=== PATIENT | female | born 1940 | race Caucasian/White ===

== ENCOUNTER → 2018-06-15 15:59 | Outpatient (CLI) | payer MEDICARE, SELFPAY ==
[2018-01-11 15:40] VITALS: BMI 33.3
[2018-06-15 17:48] LABS: Absolute Lymphocyte Count 1.41 X10^3/ul (0.83-4.51); Absolute Neutrophil Count 5.3 X10^3/uL (2.0-7.7); Basophil# 0.01 X10^3/uL; Basophil% 0.1 % (0-1); Eosinophil# 0.22 X10^3/uL; Eosinophils% 2.9 % (0-5); Hematocrit 35.5 % (37-47); Lymphocyte # 1.41 X10^3/ul (4.0); Lymphocyte % 18.3 % (19-41); Mean Corpuscular Volume 93.7 fL (81-99); Monocyte# 0.71 X10^3/uL; Monocyte% 9.2 % (0-10); Neutrophil # 5.34 X10^3/uL (2.7-7.7); Neutrophil % 69.2 % (47-70); Platelet Count 286 K/mm3 (150-450); RBC Distribution Width CV 14.1 % (11.6-14.6); RBC Distribution Width SD 47.7 fl (35.1-43.9); Red Blood Count 3.79 M/mm3 (4.2-5.4); White Blood Count 7.7 K/mm3 (4.4-11.0)
[2018-06-15 17:49] LABS: POSITIVE COUNT NO; POSITIVE DIFFERENTIAL NO; POSITIVE MORPHOLOGY NO
[2018-06-15 18:08] LABS: ALB/GLOB Ratio 0.8 RATIO (0.9-2.4); AST(SGOT) 19 U/L (15-37); Alanine Aminotransfer ALT/SGPT 23 U/L (13-56); Albumin, Serum 3.5 g/dL (3.2-5.0); Alkaline Phosphatase 133 U/L (45-117); Anion Gap 6 (5-15); BUN 12 mg/dL (7-18); BUN/Creat Ratio 14.2 RATIO (10-20); Calcium,Total 8.6 mg/dL (8.5-10.1); Chloride 106 mmol/L (98-107); Cholesterol 144 mg/dL (200); Creatinine, Serum 0.85 mg/dL (0.55-1.02); EST Glomerular Filtration Rate 69 mL/min (>60); Est Glom Filt Rate - Afr Amer 84 mL/min (>60); Globulin 4.2 g/dL (2.2-4.2); Glucose 107 mg/dL (74-106); High Density Lipoprotein 51 mg/dL; Potassium 4.4 mmol/L (3.5-5.1); Protein, Total 7.7 g/dL (6.4-8.2); Sodium Level 141 mmol/L (136-145); Thyroid Stim Hormone (TSH) 1.21 uIU/mL (0.358-3.74); Triglycerides 117 mg/dL; Very Low Density Lipoprotein 23 mg/dL (5-40)
[2018-06-15 18:09] LABS: Vitamin D,25 Hydroxy 45.7 ng/mL (29.95-100.01)
--- OUTSIDE RECORDS SUMMARY | 2018-08-20 11:33 | XMS RPT_ITS ---
:1940 Author Organization OHIP Care Team Providers Name Role Phone Hadley, Yash Chi Attending Unavailable Hadley, Yash Chi Primary Care Unavailable Megha Viera Attending Unavailable Anders Fitzpatrick Attending Unavailable Hadley, Yash Chi Referring Unavailable Hadley, Yash Chi Primary Care Unavailable PROBLEMS PROBLEMS DATE TYPE CONDITION / CODE ATTENDING STATUS SOURCE 06/15/2018 Unknown E55.9 - Vitamin D Hadley, Yash Chi Active [place] deficiency, Community unspecified / Hospital E55.9(ICD-10) Repository 06/15/2018 Unknown E78.4 - Other Hadley, Yash Chi Active [place] hyperlipidemia / Community E78.4(ICD-10) Hospital Repository 06/15/2018 Unknown I10 - Essential Hadley, Yash Chi Active [place] (primary) Community hypertension / Hospital I10(ICD-10) Repository PROCEDURES PROCEDURES No Procedure Records FoundRESULTS RESULTS CBC W/DIFF, AUTOMATED Collected: 06/15/2018 Status: F Source: [place] 4:00 PM COUNT INCLUDES THE [facility] HOSPITAL REPOSITORY TYPE CODE TESTS RESULT OUT OF RANGE REFERENCE UNITS LAB L100.1000 4.4-11.0 K/mm3 Normal WBC 7.7 LAB L100.1200 4.2-5.4 M/mm3 Low RBC 3.79 LAB L100.1300 12.0-15.0 g/dl Low HGB 11.0 LAB L100.1400 37-47 % Low HCT 35.5 LAB L100.1500 81-99 fL Normal MCV 93.7 LAB L100.1600 27.0-32.0 pg Normal MCH 29.0 LAB L100.1700 32-36 g/gl Low MCHC 31.0 LAB L100.1810 11.6-14.6 % Normal RDW CV 14.1 LAB L100.1820 35.1-43.9 fl High RDW SD 47.7 LAB L100.1900 150-450 K/mm3 Normal PLT 286 LAB L100.2000 6.2-12.0 fl Normal MPV 10.0 LAB L100.2100 47-70 % Normal NEUT% 69.2 LAB L100.2200 19-41 % Low LY% 18.3 LAB L100.2300 0-10 % Normal MONO% 9.2 LAB L100.2400 0-5 % Normal EO% 2.9 LAB L100.2500 0-1 % Normal BASO% 0.1 LAB L100.2550 0.0-0.9 % Normal IM GRAN % 0.300 Result Comment: IG% - Immature Granulocytes (promyelocytes, myelocytes and metamyelocytes) > 1% indicates that a LEFT SHIFT is Present. LAB L100.2620 2.0-7.7 X10 3/uL Normal Absolute Neut 5.3 LAB L100.2720 0.83-4.51 X10 3/ul Normal Absolute Lymph 1.41 Performed By: #### L100.0100 #### [facility] [address] [place], [place], [address] COMPREHENSIVE METABOLIC Collected: 06/15/2018 Status: F Source: [facility] 4:00 PM [facility] REPOSITORY TYPE CODE TESTS RESULT OUT OF RANGE REFERENCE UNITS LAB L501.0100 74-106 mg/dL High GLU 107 Result Comment: Fasting Glucose result from 100 to 125 mg/dL suggests IMPAIRED HOMEOSTASIS per A.D.A. criteria. Please note revised GLUCOSE reference range effective 2017. LAB L501.1000 7-18 mg/dL Normal BUN 12 LAB L501.1100 0.55-1.02 mg/dL Normal CREAT,SERUM 0.85 Result Comment: The validity of the calculated GFR AND GFRAA in patients over 70 years has not been determined. Clinical correlation is essential. LAB L501.1110 >60 mL/min Normal EST GFR 69 Result Comment: Non- GFR Calc LAB L501.1115 >60 mL/min Normal EST GFR - AA 84 Result Comment: GFR Calc LAB L501.1300 10-20 RATIO Normal BUN/CRE 14.2 LAB L501.1500 6.4-8.2 g/dL T Normal PROT 7.7 LAB L501.1800 3.2-5.0 g/dL Normal ALB 3.5 LAB L501.1950 2.2-4.2 g/dL Normal GLOB 4.2 LAB L501.2000 0.9-2.4 RATIO Low A/G 0.8 LAB L501.2200 8.5-10.1 mg/dL CA Normal 8.6 LAB L501.4100 15-37 U/L Normal AST 19 LAB L501.4305 45-117 U/L High ALK P 133 LAB L501.4405 13-56 U/L Normal ALT 23 LAB L501.4600 0.20-1.00 mg/dL T Normal BILI 0.40 LAB L501.5300 136-145 mmol/L NA Normal 141 LAB L501.5600 3.5-5.1 mmol/L K Normal 4.4 LAB L501.5900 98-107 mmol/L CL Normal 106 LAB L501.6100 21.0-32.0 mmol/L Normal CO2 29.0 LAB L501.6200 5-15 Normal GAP 6 Performed By: #### L500.4050, L500.4100, L501.9520 #### [facility] [address] [place], [address] LIPID PROFILE Collected: 06/15/2018 Status: F Source: [place] 4:00 PM [facility] REPOSITORY TYPE CODE TESTS RESULT OUT OF RANGE REFERENCE UNITS LAB L501.4900 200 mg/dL Normal CHOL 144 Result Comment: <200 mg/dL Desirable 200-240 mg/dL Borderline >240 mg/dL High Risk LAB L501.5000 mg/dL Normal TRIG 117 Result Comment: The drugs N-Acetylcysteine and Metamizole may falsely depress this assay. Serum Triglycerides Reference Interval Normal <150 mg/dL Borderline high 150 - 199 mg/dL High 200 - 499 mg/dL Very High > or = 500 mg/dL LAB L501.6400 mg/dL Normal HDL 51 Result Comment: The drugs N-Acetylcysteine and Metamizole may falsely depress this assay. Reference Range HDL <40 mg/dL Low HDL Cholesterol HDL >or= 60 mg/dL High HDL Cholesterol LAB L501.6500 0-130 mg/dL Normal LDL 70 LAB L501.6600 5-40 mg/dL Normal VLDL 23 Performed By: #### L500.4050, L500.4100, L501.9520 #### [facility] [address] [place], [address] THYROID STIM HORMONE Collected: 06/15/2018 Status: F Source: [place] (TSH) 4:00 PM [facility] REPOSITORY TYPE CODE TESTS RESULT OUT OF RANGE REFERENCE UNITS LAB L501.9520 0.358-3.74 uIU/mL Normal TSH 1.21 Performed By: #### L500.4050, L500.4100, L501.9520 #### [facility] [address] [place], [address] VITAMIN D,25 HYDROXY Collected: 06/15/2018 Status: F Source: [place] 4:00 PM [facility] REPOSITORY TYPE CODE TESTS RESULT OUT OF RANGE REFERENCE UNITS LAB L506.1000 29.95-100.01 ng/mL Normal Vitamin D 45.7 25-OH Result Comment: Vitamin D 25(OH) Status Range Deficiency <20 ng/mL (50nmol/L) Insuffciency 20 - 30 ng/mL (50 - 75 nmol/L) Sufficiency 30 - 100 ng/mL (75 - 250 nmol/L) Toxicity >100 ng/mL (>250 nmol/L) Performed By: #### L506.1000 #### [facility] [address] [place], [address] CARDIOLOGY VISIT Observed: 01/11/2018 Status: F Source: [place] REPORT 4:12 PM [facility] REPOSITORY [facility] [address] [place], [place] [address] OFFICE VISIT Date of Service: 01/11/18 MR#: [id number] Acct: [id number] Name: BOBBI JARAMILLO Coty Rep #: [id number] : 1940 Provider: Anders Fitzpatrick MD Age/Sex: 77/F Location: [facility] Status: Signed HPI HPI Details: BOBBI JARAMILLO, is a 77 F who presents to the office today for for outpatient cardiovascular follow-up. Overall she states she is doing well. She has had no resting or exertional chest discomfort or pain. There is been no episodes of CHF or pulmonary edema. There has been no peripheral pitting edema. She has denied any near syncope or syncope. She has denied the use of any nitroglycerin sublingual tablets. She states her PCP continues to monitor her lipid profile. Intake Vital Signs01/11/18 Height 5 ft 3 in 01/11/18 Weight: 188 lb 01/11/18 Body Mass Index (BMI) 33.3 01/11/18 Blood Pressure 132/70 Intake Visit Reasons: 9 M FU Allergies No Known Allergies Allergy (Verified 01/11/18 15:40) Medications Aspirin [Aspirin, Baby] 81 mg PO DAILY@0800 03/31/15 [History Confirmed 01/11/18] Atorvastatin Calcium [Lipitor] 80 mg PO QHS 04/16/15 [History Confirmed 01/11/18] Carvedilol [Coreg] 3.125 mg PO BID 04/16/15 [History Confirmed 01/11/18] Nitroglycerin [Nitrostat] 0.4 mg SUBLINGUAL Q5M PRN 04/16/15 [History Confirmed 01/11/18] ticagrelor 90 mg tablet 90 mg PO BID #180 tab 07/15/17 [Rx Confirmed 01/11/18] lisinopril 5 mg tablet 5 mg PO QDAY tab 01/10/18 [History Confirmed 01/11/18] PFS Medical History Inferior myocardial infarction (Acute) Left ventricular diastolic dysfunction (Acute) Left ventricular hypertrophy (Acute) Hyperlipidemia (Chronic) Hypertension (Chronic) Ischemic cardiomyopathy (Chronic) Presence of stent in coronary artery (Chronic 03/31/15) 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) Surgical History Postsurgical percutaneous transluminal coronary angioplasty (PTCA) status (Chronic 03/31/15) Social History Smoking Status: Never smoker alcohol intake: never substance use type: does not use ROS Const Const: Negative for fatigue, weakness, weight gain, weight loss, frequent falls or excessive sweating Eyes Eyes: Negative for change in vision, blurry vision or transient loss of vision ENT ENT: Negative for dizziness or balance problems Cardio Chest Pain: No Palpitations: No Edema: None Muscle aches with walking: None Resp Respiratory: Negative for SOB with activity or SOB at rest GI GI: Negative vomiting or vomiting blood/hematemesis : Negative for hematuria Musc Musc: Positive for muscle aches/ myalgia (occasional neck pain); negative for balance problems, muscle weakness or joint pain Skin Skin: Negative non-healing lesions or rash Neuro Neuro: Negative for weakness, blurry vision, dizziness, lightheadedness, frequent falls or orthostatic symptoms [place] Hematologic/Lymphatic: Negative for easy bleeding Endo Endo: Negative for fatigue or excessive sweating Psych Psych: Negative for anxiety or depression Allergy Allergy/Immunology: Negative for hives, Negative for rash Cardiology Exam Const Appearance: cooperative, healthy appearing, comfortable, no acute distress, well developed and well groomed Nutritional Appearance: average body habitus Orientation: alert, awake and oriented x3 Head Head: normal to inspection, normocephalic and atraumatic Ears: hearing grossly normal bilaterally Nose: external nose normal Face and Sinus: face symmetric Mouth: oral mucosae normal Teeth and gingiva: fair dentition Eyes Eyelids: eyelids normal Conjunctivae: conjunctivae normal Pupils: PERRL EOM: EOM intact bilaterally Neck Neck: normal visual inspection and full ROM Carotids: normal carotid upstroke Chest Chest inspection: normal inspection of the chest and symmetric chest movement Auscultation: Bilateral: Clear to Auscultation Cardio Palpation: normal PMI Rate: regular rate Rhythm: regular rhythm Heart sounds: S1 normal, S2 normal and positive S4 Murmur: Grade 1/6, soft, mid systolic and LLSB GI GI: normal to inspection, bowel sounds present, soft and no hepatosplenomegaly Neuro General: alert, awake, oriented x3 and moves all extremities Skin Skin: no rashes or lesions noted Extremities Pulses: Normal: Right Radial Pulse, Left Radial Pulse Lower Extremity Edema: None: Bilateral Psych Psychological: normal affect Supplemental Info She did have a transthoracic echocardiogram performed on 06/24/2015. The else are as noted below. Interpretation Summary The study was technically difficult. Segmental dysfunction with preserved ejection fraction (see wall motion). The estimated ejection fraction is 55 %. The left atrium is mildly enlarged. Mild diffuse mitral valve thickening. Mild (1+) mitral valve insufficiency. Trivial tricuspid valve insufficiency. Moderate focal aortic valve calcification. Calcified aortic root. Unable to estimate RV systolic pressure. She had a stress test performed on 04/15/2015. The results are as noted below. EXERCISE TOLERANCE TEST: The patient exercised on a Jp protocol for 1 minute not completing stage I, achieving a peak heart rate of 97 beats per minute (66% predicted maximum heart rate) and a peak blood pressure of 144/80 mmHg and a peak MET capacity of approximately 3 METS. The baseline ECG demonstrated normal sinus rhythm with T-wave abnormality. The peak exercise ECG demonstrated no obvious ECG changes at the heart rate achieved. There were no cardiac dysrhythmias pretest, during exercise, or recovery. The functional capacity was considered decreased. The patient had no complaint of chest discomfort during exercise or recovery. The examination was discontinued secondary to dizziness. IMPRESSION: 1. Technically inadequate (percent predicted maximum heart rate less than 85%) exercise tolerance test. 2. Peak exercise ECG with no obvious ECG changes at the heart rate achieved. 3. Decreased functional capacity. She had a cardiac catheterization/PCI performed on 03/31/2015 at [facility]. In summary the left ventricle was thought to have an LVEF of 40-45% with hypokinesis of the diaphragmatic section and akinesis of the basal inferior section. 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 She underwent PTCA/stenting of the RCA. There was no comment of any angiographically significant appearing disease in the left coronary artery system. Assessment AND Plan 1. Atherosclerosis of [place]ka coronary artery of [place] heart without angina pectoris I25.10 PTCA/ALBARO of the RCA 03/31/15 Plan At the present time she appears to be doing well. She will continue her medical management and follow-up. 2. Presence of stent in coronary artery Z95.5 PTCA/ALBARO of the RCA 03/31/15 Plan She does have a history of previous PCI to the RCA as noted above. Again she is doing well. She will continue medical management. 3. Cardiomyopathy, ischemic I25.5 Plan She does have an underlying ischemic mediated cardiomyopathy. Her overall LV systolic function by echocardiogram has improved compared to her previous diagnostic cardiac catheterization. She is without any obvious symptoms of acute CHF or pulmonary edema. She will continue her current medical management. 4. Hyperlipidemia, unspecified hyperlipidemia type E78.5 Plan She states her PCP is checking her lipids. A copy would be appreciated for continuity. 5. Hypertension, unspecified type I10 Plan She will continue her current medical management and her blood pressure will be followed Plan Detail Additional Comments Thank you for allowing me to participate in the care of your patient. Please don't hesitate to call if any issues arise. This note was generated using a voice recognition system and there may be incorrect words, spelling or punctuation that were not noted when reviewing the office note prior to saving. Follow Up 9 Months (PFM) Coding Level of Care Code Off vis,est,level 3 Diagnoses Atherosclerosis of [place]ka coronary artery of [place] heart without angina pectoris I25.10 [place] vs. transplanted heart: [place]ka heart Presence of stent in coronary artery Z95.5 Cardiomyopathy, ischemic I25.5 Hyperlipidemia, unspecified hyperlipidemia type E78.5 Hyperlipidemia type: unspecified Hypertension, unspecified type I10 Hypertension type: unspecified Coding Level of Care Code Off vis,est,level 3 Diagnoses Atherosclerosis of [place] coronary artery of [place] heart without angina pectoris I25.10 [place] vs. transplanted heart: [place] heart Presence of stent in coronary artery Z95.5 Cardiomyopathy, ischemic I25.5 Hyperlipidemia, unspecified hyperlipidemia type E78.5 Hyperlipidemia type: unspecified Hypertension, unspecified type I10 Hypertension type: unspecified 01/11/18 1612 <Electronically signed by Anders Fitzpatrick MD> Date Anders Fitzpatrick MD Cosigner Signature: Date (if applicable) CC: Yash Butcher MD CBC AND DIFFERENTIAL Collected: 12/21/2017 Status: F Source: [place] 9:38 AM CLINIC REFERENCE REPOSITORY TYPE CODE TESTS RESULT OUT OF REFERENCE UNITS RANGE LAB WBC(LOINC) 3.70-11.00 k/uL WBC 9.13 LAB RBC(LOINC) 3.90-5.20 m/uL Low RBC 3.84 LAB HGB(LOINC) 11.5-15.5 g/dL Low Hemoglobin 11.3 LAB HCT(LOINC) 36.0-46.0 % Hematocrit 36.4 LAB MCV(LOINC) 80.0-100.0 fL MCV 94.8 LAB MCH(LOINC) 26.0-34.0 pG MCH 29.4 LAB MCHC(LOINC 30.5-36.0 g/dL ) MCHC 31.0 LAB RDWCV(LOIN 11.5-15.0 % C) RDW-CV 13.6 LAB PLTCT(LOIN 150-400 k/uL C) Platelet Count 300 LAB MPV(LOINC) 9.0-12.7 fL MPV 10.5 LAB ANEUT(LOIN % C) Neut% 71.2 LAB AANEUT(SHANAE 1.45-7.50 k/uL NC) Abs Neut 6.50 LAB ALYMP(LOIN % C) Lymph% 18.2 LAB AALYMP(SHANAE 1.00-4.00 k/uL NC) Abs Lymph 1.66 LAB AMONO(LOIN % C) [place]% 8.1 LAB AAMONO(SHANAE <0.87 k/uL NC) Abs [place] 0.74 LAB AEOS(LOINC % ) Eosin% 2.3 LAB AAEOS(LOIN <0.46 k/uL C) Abs Eosin 0.21 LAB ABASO(LOIN % C) Baso% 0.2 LAB AABASO(SHANAE <0.11 k/uL NC) Abs Baso <0.03 LAB AUNRBC(SHANAE 0 /100 WBC NC) NRBCs 0.0 LAB ABNRBC(SHANAE <0.01 k/uL NC) Absolute nRBC <0.01 LAB DTYP(LOINC ) DTYPE ADIFF Performed By: #### CBCDIF, CMP, LIPB, TSH #### [facility] Routine Lab [address] [place], [place] [address] #### D2D3 #### [facility] [place] [facility] Chemistry [address] [place], [place] [address] COMP METABOLIC PANEL Collected: 12/21/2017 Status: F Source: [place] 9:38 AM CLINIC REFERENCE REPOSITORY TYPE CODE TESTS RESULT OUT OF REFERENCE UNITS RANGE LAB TP(LOINC) 6.3-8.0 g/dL Protein, Total 7.2 LAB ALB(LOINC) 3.9-4.9 g/dL Albumin 4.0 LAB CA(LOINC) 8.5-10.2 mg/dL Calcium, Total 9.2 LAB TBIL(LOINC 0.2-1.3 mg/dL ) Bilirubin, Total 0.4 LAB ALKP(LOINC 32-117 U/L ) Alkaline Phosphatase 106 LAB AST(LOINC) 13-35 U/L AST 24 LAB GLU(LOINC) 74-99 mg/dL Glucose 93 LAB BUN(LOINC) 7-21 mg/dL BUN 11 LAB CRET(LOINC 0.58-0.96 mg/dL ) Creatinine 0.81 LAB NA(LOINC) 136-144 mmol/L Sodium 138 LAB K(LOINC) 3.7-5.1 mmol/L Potassium 4.1 LAB CL(LOINC) 97-105 mmol/L Chloride 101 LAB CO2(LOINC) 22-30 mmol/L CO2 25 LAB AGAP(LOINC 9-18 mmol/L ) Anion Gap 12 LAB ALT(LOINC) 7-38 U/L ALT 11 LAB GFRAA(LOIN C) eGFR- >60 Amer. LAB GFRNAA(SHANAE . NC) eGFR-All Other Races >60 Performed By: #### CBCDIF, CMP, LIPB, TSH #### [facility] [place] [facility] Routine Lab [address] [place] [address] #### D2D3 #### [facility] [place] [facility] Chemistry [address] [place] [address] LIPID PANEL, BASIC Collected: 12/21/2017 Status: F Source: [place] 9:38 AM CLINIC REFERENCE REPOSITORY TYPE CODE TESTS RESULT OUT OF REFERENCE UNITS RANGE LAB CHOL(LOINC <200 mg/dL ) Cholesterol 142 LAB TRIGLY(SHANAE <150 mg/dL NC) Triglyceride 105 LAB HDL(LOINC) >39 mg/dL HDL-Cholesterol 44 LAB LDL(LOINC) <100 mg/dL LDL-Cholesterol 77 LAB NONHDL(SHANAE <130 mg/dL NC) Non HDL Cholesterol 98 LAB FT(LOINC) hrs Fasting Time 16 LAB VLDL(LOINC <30 mg/dL ) VLDL Cholesterol 21 LAB TCHDL(LOIN <5.10 C) TC:HDL Ratio 3.23 LAB LDLHDL(SHANAE <2.54 NC) LDL:HDL Ratio 1.75 Performed By: #### CBCDIF, CMP, LIPB, TSH #### [facility] Routine Lab [address] [place] [address] #### D2D3 #### [facility] Chemistry [address] [place] [phone] TSH Collected: 12/21/2017 Status: F Source: [place] 9:38 AM CLINIC REFERENCE REPOSITORY TYPE CODE TESTS RESULT OUT OF RANGE REFERENCE UNITS LAB TSH(LOINC) 0.400-5.500 uU/mL TSH 1.550 Performed By: #### CBCDIF, CMP, LIPB, TSH #### [facility] Routine Lab [address] [place] [phone] #### D2D3 #### [facility] Chemistry [address] [place] [phone] 25-HYDROXY D2+D3 Collected: 12/21/2017 Status: F Source: [place] 9:38 AM CLINIC REFERENCE REPOSITORY TYPE CODE TESTS RESULT OUT OF RANGE REFERENCE UNITS LAB 25OHD2(LOIN ng/mL C) 29.2 25-Hydroxy D2 LAB 25OHD3(LOIN ng/mL C) 9.2 25-Hydroxy D3 LAB 25OHDT(LOIN 30.0-100.0 ng/mL C) 38.4 25-Hydroxy D Total Performed By: #### CBCDIF, CMP, LIPB, TSH #### [facility] Routine Lab [address] [place] [address] #### D2D3 #### [facility] Chemistry [address] [place] [address] PROGRESS Observed: 10/28/2017 Status: COMPLETED Source: [place] 7:52 PM [facility] REPOSITORY HNO ID: [id number] Author: Catarina Hilton) Sonny Service: (none) Author Type: Nurse Practitioner Type: Progress Notes Filed: 10/30/2017 8:16 AM Note Text: Subjective HPI Bobbi Jaramillo is a 76 year old female who presents with left lower leg abrasions. She fell 5 days ago and scraped her leg on the curb. She has been walking on the leg since. She noticed redness surrounding the abrasions today. She has been using antibiotic ointment on it. She rates the pain a 5/10. She has taken tylenol for the pain. Review of Systems Constitutional: Negative. Negative for chills and fever. Musculoskeletal: Positive for falls. Negative for joint pain. See HPI Skin: Negative. Negative for itching and rash. BP 108/60 Pulse 70 Temp 36.9 ?C (98.4 ?F) (Left Tympanic) Resp 14 Wt 84.8 kg (187 lb) No past medical history on file. No past surgical history on file. ALLERGIES Patient has no known allergies. MEDICATIONS aspirin, enteric coated (ASPIRIN, ENTERIC COATED) 81 mg EC tablet ASPIRIN EC 81 MG TBEC atorvastatin (LIPITOR) 80 mg tablet ATORVASTATIN CALCIUM 80 MG TABS carvedilol (COREG) 3.125 mg tablet COREG 3.125 MG TABS lisinopril (ZESTRIL, PRINIVIL) 5 mg tablet LISINOPRIL 5 MG TABS nitroglycerin sublingual (NITROSTAT) 0.4 mg SL tablet NITROSTAT 0.4 MG SUBL ticagrelor (BRILINTA) 90 mg tablet BRILINTA 90 MG TABS No family history on file. Social History Substance Use Topics - Smoking status: Never Smoker - Smokeless tobacco: Never Used - Alcohol use Not on file Objective Physical Exam Constitutional: She is well-developed, well-nourished, and in no distress. Musculoskeletal: Left lower leg: She exhibits tenderness, swelling and edema. She exhibits no bony tenderness. Legs: Neurological: She is alert. Skin: Skin is warm and dry. There is erythema. Nursing note and vitals reviewed. ASSESSMENT/PLAN: 1. Localized bacterial skin infection - ICD9: 686.9, 041.9, ICD10: L08.9, B96.89 (primary diagnosis) - Begin treatment with Cephalaxin (Keflex) - No lymphangetic streaking, this was defined for patient to watch for and to seek medical care immediately if appears - CEPHALEXIN 500 MG CAPSULE - MUPIROCIN 2 % TOPICAL OINTMENT - skin care of wounds discussed with patient 2. Need for dhoaaombbq-izgpxnz-yshrucfqm (Tdap) vaccine - ICD9: V06.1, ICD10: Z23 - TDAP VACCINE AGE 7+ IM - Follow-up with your PCP in 3-5 days if symptoms have not improved or sooner if symptoms worsen - Discussed red flags and need for immediate medical evaluation if any occur. - Discussed supportive care treatment with fluids, rest and analgesia. - Discussed expected course of illness Catarina Dennis APRN.CNP CNOV Observed: 10/28/2017 Status: COMPLETED Source: [place] 7:45 PM [facility] REPOSITORY Office Visit (WSTR) CRISTOBAL JARAMILLOTEVIN Ansari ([id number]) 1940 F Date Time Provider Department 10/28/17 7:45 PM CATARINA DENNIS ([facility]) [facility] During your visit today, we recorded the following information about you: Temperature Pulse Respiration Blood pressure 98.4 degrees 70/minute 14/minute 108/60 Weight 84.8 kg Catarina Dennis APRN.CNP 10/30/2017 8:16 AM Signed Subjective HPI Bobbitevin Jaramillo is a 76 year old female who presents with left lower leg abrasions. She fell 5 days ago and scraped her leg on the curb. She has been walking on the leg since. She noticed redness surrounding the abrasions today. She has been using antibiotic ointment on it. She rates the pain a 5/10. She has taken tylenol for the pain. Review of Systems Constitutional: Negative. Negative for chills and fever. Musculoskeletal: Positive for falls. Negative for joint pain. See HPI Skin: Negative. Negative for itching and rash. BP 108/60 Pulse 70 Temp 36.9 ?C (98.4 ?F) (Left Tympanic) Resp 14 Wt 84.8 kg (187 lb) No past medical history on file. No past surgical history on file. ALLERGIES Patient has no known allergies. MEDICATIONS aspirin, enteric coated (ASPIRIN, ENTERIC COATED) 81 mg EC tablet ASPIRIN EC 81 MG TBEC atorvastatin (LIPITOR) 80 mg tablet ATORVASTATIN CALCIUM 80 MG TABS carvedilol (COREG) 3.125 mg tablet COREG 3.125 MG TABS lisinopril (ZESTRIL, PRINIVIL) 5 mg tablet LISINOPRIL 5 MG TABS nitroglycerin sublingual (NITROSTAT) 0.4 mg SL tablet NITROSTAT 0.4 MG SUBL ticagrelor (BRILINTA) 90 mg tablet BRILINTA 90 MG TABS No family history on file. Social History Substance Use Topics - Smoking status: Never Smoker - Smokeless tobacco: Never Used - Alcohol use Not on file Objective Physical Exam Constitutional: She is well-developed, well-nourished, and in no distress. Musculoskeletal: Left lower leg: She exhibits tenderness, swelling and edema. She exhibits no bony tenderness. Legs: Neurological: She is alert. Skin: Skin is warm and dry. There is erythema. Nursing note and vitals reviewed. ASSESSMENT/PLAN: 1. Localized bacterial skin infection - ICD9: 686.9, 041.9, ICD10: L08.9, B96.89 (primary diagnosis) - Begin treatment with Cephalaxin (Keflex) - No lymphangetic streaking, this was defined for patient to watch for and to seek medical care immediately if appears - CEPHALEXIN 500 MG CAPSULE - MUPIROCIN 2 % TOPICAL OINTMENT - skin care of wounds discussed with patient 2. Need for kxpistivny-dtaowlv-vnqlcxudj (Tdap) vaccine - ICD9: V06.1, ICD10: Z23 - TDAP VACCINE AGE 7+ IM - Follow-up with your PCP in 3-5 days if symptoms have not improved or sooner if symptoms worsen - Discussed red flags and need for immediate medical evaluation if any occur. - Discussed supportive care treatment with fluids, rest and analgesia. - Discussed expected course of illness ERUM Smith APRN.CNP 10/28/2017 7:59 PM Signed ABRASIONS General Information: Abrasions occur when the outer layer of skin is rubbed or scraped off. To prevent infection, the doctor may have had to remove any dirt or gravel that was ground into the skin. Instructions: Keep the wounded area raised as much as possible to relieve the pain and swelling and to help the wound heal. Apply antibiotic ointment 2-3 times daily. Take medications as prescribed. If not improving in 3-5 days, or you have worsening symptoms, see your primary care provider for recheck. Contact Your Doctor Or Fo To The ED If: You have a temperature over 100 degrees F Blood soaks through the dressing. Pain in the injured area becomes worse. You have numbness or swelling at a point below the wound. You have redness, swelling, pus, a bad smell, or red streaks coming away from the wound. These are signs of infection. Referring Provider: SELF [[id number]] Allergies As of Date: 10/28/2017 (No Known Allergies) Date Reviewed: 10/28/2017 Reviewed by: Catarina ([facility]) Sonny - Fully Assessed Reason for Visit: Wound Check [133] Primary Visit Diagnosis:Localized bacterial skin infection [L08.9, B96.89] Other Visit Diagnosis:Need for fbadhthpmn-pqsnvpm-ubkeyplrz (Tdap) vaccine [Z23] Order(s):TDAP VACCINE AGE 7+ IM [[id number]] Order #: [id number] cephALEXin (KEFLEX) 500 mg capsuleTake 1 capsule by mouth twice daily for 10 days.Disp: 20 capsuleRfl: 0 mupirocin (BACTROBAN) 2 % ointmentApply 1 application to affected area three times daily for 10 days. Location: left lower legDisp: 22 gRfl: 0 Prescriptions as of 10/28/2017 Sig: ASPIRIN 81 MG TABLET,DELAYED * ASPIRIN EC 81 MG TBEC ATORVASTATIN 80 MG TABLET ATORVASTATIN CALCIUM 80 MG TA* CARVEDILOL 3.125 MG TABLET COREG 3.125 MG TABS LISINOPRIL 5 MG TABLET LISINOPRIL 5 MG TABS NITROGLYCERIN 0.4 MG SUBLINGU* NITROSTAT 0.4 MG SUBL TICAGRELOR 90 MG TABLET BRILINTA 90 MG TABS CEPHALEXIN 500 MG CAPSULE Take 1 capsule by mouth twice* MUPIROCIN 2 % TOPICAL OINTMENT Apply 1 application to affect* Problem List As Of Date 10/28/2017 Noted Resolved H/O heart artery stent [Z95.5] INVALID FOR* History of heart attack [I25.2] INVALID FOR* More... Other instructions from your clinician: ABRASIONS General Information: Abrasions occur when the outer layer of skin is rubbed or scraped off. To prevent infection, the doctor may have had to remove any dirt or gravel that was ground into the skin. Instructions: Keep the wounded area raised as much as possible to relieve the pain and swelling and to help the wound heal. Apply antibiotic ointment 2-3 times daily. Take medications as prescribed. If not improving in 3- 5 days, or you have worsening symptoms, see your primary care provider for recheck. Contact Your Doctor Or Fo To The ED If: You have a temperature over 100 degrees F Blood soaks through the dressing. Pain in the injured area becomes worse. You have numbness or swelling at a point below the wound. You have redness, swelling, pus, a bad smell, or red streaks coming away from the wound. These are signs of infection. Prescriptions ordered this encounter Disp Refills Start End CEPHALEXIN 500 MG CAPSULE 20 c* 0 10/28/2017 11/07/2017 Route: ORAL Sig: Take 1 capsule by mouth twice daily for 10 days. MUPIROCIN 2 % TOPICAL OINTMENT 22 g 0 10/28/2017 11/07/2017 Route: TOPICAL Sig: Apply 1 application to affected area three times daily for 10 days. Location: left lower leg Encounter Status:Closed by CATARINA DENNIS on 10/30/17 ALLERGIES ALLERGIES DATE TYPE / CODE NAME / CODE REACTION SEVERITY SOURCE 01/11/2018 Drug No Known Unknown [facility] Allergy/4160 Allergies/F00 [facility] 51572(SNOMED [id number](RXNOR Repository CT) M) ENCOUNTERS ENCOUNTERS ADMIT/DISCHARGE ACCOUNT ADMITTING ENCOUNTER LOCATION SOURCE NUMBER CLASS 06/15/2018 [id number] Ambulatory [facility] ing:POLAB3 Repository 01/11/2018/01/12/20 [id number] Ambulatory BMS[facility]:[address] [place] [address] [facility] Repository 01/10/2018 [id number] Ambulatory [facility]MS[facility] [place] [facility] Repository 10/28/2017/04/03/20 [id number] Ambulatory [address] Repository PAYERS PAYERS ENCOUNTER GUARANTOR PAYER SUBSCRIBER SOURCE 06/15/2018 BOBBI L [id number] Primary BOBBI L [place] [address] Insurance:HUMANA MCR PRICEDOB: [place] [facility] [id number] Hospital [address]Gzj: (330) 03/30/18Policy Number: Repository [phone] () [id number] Date:[id number] [address] [place], [place] [id number]: 06/15/2018 Secondary NOT GIVENUNK [place] Insurance:SELF PAY [facility] Number: Effective Repository Date:2017-12-15 01/11/2018 BOBBI L [id number] Primary BOBBI L [place] [address] Insurance:HUMANA MCR PRICEDOB: [address], [place] HMO -OUT OF [id number] Hospital [address]Uhl: (330) NETWORKPolicy Number: Repository [phone] () [id number] Date:[id number] [place] [id number]: 01/11/2018 Secondary NOT GIVENUNK [place] Insurance:SELF PAY [facility] Number: Effective Repository Date:2017-05-17 01/10/2018 Bobbi L [id number] Primary Bobbi L [address] Insurance:HUMANA MCR PriceDOB: [address], [place] HMO -OUT OF [id number] Hospital [address]Kwt: [phone]) NETWORKPolicy Number: Repository [phone] () [id number] Date:[id number] [address] [address]DP: 01/10/2018 Secondary NOT GIVENUNK [place] Insurance:SELF PAY [facility] Number: Effective Repository Date:2018-01-10
== END ==
PROVIDERS: Family Provider Family Medicine Geriatric Medicine; PCP Family Medicine Geriatric Medicine; Visit Provider Family Medicine Geriatric Medicine
DX: I10 Essential (primary) hypertension (principal); E55.9 Vitamin D deficiency, unspecified; E78.49 Other hyperlipidemia
CPT/HCPCS: 36415; 80053; 80061; 82306; 84443; 85025

== ENCOUNTER → 2018-12-19 08:47 | Outpatient (CLI) | payer MEDICARE, SELFPAY ==
[2018-11-01 15:19] VITALS: BMI 32.8
[2018-12-19 17:11] LABS: Absolute Lymphocyte Count 1.99 X10^3/uL (0.83-4.51); Absolute Neutrophil Count 5.6 X10^3/uL (2.0-7.7); Basophil# 0.03 X10^3/uL; Basophil% 0.3 % (0-1); Eosinophil# 0.27 X10^3/uL; Eosinophils% 3.1 % (0-5); Hematocrit 36.1 % (37-47); Hemoglobin 11.4 g/dL (12.0-15.0); Lymphocyte # 1.99 X10^3/ul (4.0); Lymphocyte % 22.9 % (19-41); Mean Corp Hgb Conc 31.6 g/dL (32-36); Mean Corpuscular Hgb 29.3 pg (27.0-32.0); Mean Corpuscular Volume 92.8 fL (81-99); Mean Platelet Vol. 10.1 fl (6.2-12.0); Monocyte# 0.81 X10^3/uL; Monocyte% 9.3 % (0-10); NRBC Flagged by Analyzer 0 % (0-5); Neutrophil # 5.55 X10^3/uL (2.7-7.7); Neutrophil % 64.1 % (47-70); Platelet Count 275 K/mm3 (150-450); RBC Distribution Width CV 14.1 % (11.6-14.6); RBC Distribution Width SD 47.6 fl (35.1-43.9); Red Blood Count 3.89 M/mm3 (4.2-5.4); White Blood Count 8.7 K/mm3 (4.4-11.0)
[2018-12-19 17:55] LABS: ALB/GLOB Ratio 0.9 RATIO (0.9-2.4); AST(SGOT) 21 U/L (15-37); Alanine Aminotransfer ALT/SGPT 21 U/L (13-56); Albumin, Serum 3.6 g/dL (3.2-5.0); Alkaline Phosphatase 132 U/L (45-117); Anion Gap 9 (5-15); BUN 10 mg/dL (7-18); BUN/Creat Ratio 11.6 RATIO (10-20); Calcium,Total 8.8 mg/dL (8.5-10.1); Chloride 106 mmol/L (98-107); Cholesterol 143 mg/dL (200); Creatinine, Serum 0.86 mg/dL (0.55-1.02); EST Glomerular Filtration Rate 68 mL/min (>60); Est Glom Filt Rate - Afr Amer 82 mL/min (>60); Globulin 4.2 g/dL (2.2-4.2); Glucose 90 mg/dL (74-106); High Density Lipoprotein 49 mg/dL; Protein, Total 7.8 g/dL (6.4-8.2); Sodium Level 142 mmol/L (136-145); Thyroid Stim Hormone (TSH) 1.24 uIU/mL (0.358-3.74); Triglycerides 119 mg/dL; Very Low Density Lipoprotein 24 mg/dL (5-40)
[2018-12-19 18:09] LABS: Vitamin D,25 Hydroxy 42.3 ng/mL (29.95-100.01)
== END ==
PROVIDERS: Family Provider Family Medicine Geriatric Medicine; PCP Family Medicine Geriatric Medicine; Visit Provider Family Medicine Geriatric Medicine
DX: I10 Essential (primary) hypertension (principal); E78.5 Hyperlipidemia, unspecified; E55.9 Vitamin D deficiency, unspecified
CPT/HCPCS: 36415; 80053; 80061; 82306; 84443; 85025

== ENCOUNTER → 2019-02-26 14:19 | Outpatient (CLI) | payer MEDICARE, SELFPAY ==
[2019-02-13 14:47] VITALS: BMI 32.8
== END ==
PROVIDERS: Family Provider Family Medicine Geriatric Medicine; PCP Family Medicine Geriatric Medicine; Referring Provider Family Medicine Geriatric Medicine; Visit Provider Family Medicine Geriatric Medicine
DX: R68.83 Chills (without fever) (principal)
CPT/HCPCS: 87633

== ENCOUNTER 2019-03-16 07:45 | Day surgery (SDC) | payer MEDICARE, SELFPAY ==
--- NOTE | 2019-02-13 03:30 | HP_ITS ---
Intake Vital Signs 02/13/19 Body Mass Index (BMI) 32.8 02/13/19 Height 5 ft 2.5 in 02/13/19 Weight: 175 lb 02/13/19 Body Mass Index (BMI) 31.5 02/13/19 Blood Pressure 165/74 H 02/13/19 Blood Pressure Location Rt brachial 02/13/19 Blood Pressure Position Sitting 02/13/19 Respiratory Rate 16 02/13/19 Pulse Rate 71 02/13/19 Pulse Source Monitor 02/13/19 Temperature 98.5 F Intake Visit Reasons: Positive Cologuard Is patient in pain?: Yes (abdominal pain on and off) Allergies No Known Allergies Allergy (Verified 02/13/19 14:46) Medications Aspirin [Aspirin, Baby] 81 mg PO DAILY@0800 03/31/15 [History Confirmed 02/13/19] Nitroglycerin (INPATIENT USE) [Nitrostat] 0.4 mg SUBLINGUAL Q5M PRN 04/16/15 [History Confirmed 02/13/19] ticagrelor 90 mg tablet 90 mg PO BID #180 tab 05/11/18 [Rx Confirmed 02/13/19] atorvastatin 80 mg tablet 80 mg PO QHS #90 tab 11/08/18 [Rx Confirmed 02/13/19] carvedilol 3.125 mg tablet 3.125 mg PO BID #180 tab 11/08/18 [Rx Confirmed 02/13/19] lisinopril 5 mg tablet 5 mg PO QDAY #90 tab 11/08/18 [Rx Confirmed 02/13/19] multivitamin tablet 1 tab PO DAILY 02/13/19 [History Confirmed 02/13/19] PFSH Medical History Hemorrhoids (Acute) Constipation (Acute) Diarrhea (Acute) Nausea (Acute) Abdominal pain (Acute) Essential hypertension (Chronic) Inferior myocardial infarction (Acute) Left ventricular diastolic dysfunction (Acute) Left ventricular hypertrophy (Acute) Hyperlipidemia (Chronic) Ischemic cardiomyopathy (Chronic) Atherosclerotic heart disease of [place] coronary artery without angina pectoris (Chronic) Hypertension (Inactive) Surgical History Postsurgical percutaneous transluminal coronary angioplasty (PTCA) status (Chronic ~03/31/15) Presence of stent in coronary artery (Chronic ~03/31/15) Family History Sister Uterine cancer Social History (Updated 02/13/19 @ 15:32 by Maxwell Scott MD) Smoking Status: Never smoker second hand exposure: No alcohol intake: never substance use type: does not use caffeine: Yes what type of physical activity do you participate in: walking, additional details: tredmill frequency: daily seatbelt use: always HPI HPI HPI: BOBBI JARAMILLO, is a 78 F who presents to the office today for HPI HPI Surgical H&P: Yes HPI: BOBBI JARAMILLO, is a 78 F who presents to the office today for colonoscopy. Patient had a recent Cologuard test which was positive. She does say that she occasionally has abdominal pain. She also occasionally has blood in her stool but she attributed this to her hemorrhoids. She is on Brilinta and aspirin due to heart stents. She has never had a colonoscopy. ROS General General: No weight change or fatigue Cardio Cardiovascular: Yes heart attack and heart stent; no murmur, pacemaker, heart disease, atrial fibrillation, high blood pressure, palpitations, shortness of breat with exertion or chest pain Psych Psychiatric: No depression or anxiety Resp Respiratory: No shortness of breath, No sleep apnea, Yes cough, No COPD, No asthma, No emphysema, No wheezing Gastro Gastrointestinal: Yes abdominal pain, Yes nausea or vomiting, Yes diarrhea, Yes constipation, No blood in stool, No acid reflux, Yes hemorrhoids, No ulcers, No gallbladder problem, No black,tarry stools [place] Hematologic: Yes blood thinners Exam Const General: cooperative Orientation: alert, oriented x3 Resp Effort & Inspection: normal respiratory effort Auscultation: clear to auscultation bilaterally Cardio Rate: regular rate Rhythm: regular rhythm Heart Sounds: no murmurs GI Inspection: non-distended Palpation: soft, nontender Assessment & Plan Problems 1. Positive colorectal cancer screening using Cologuard test R19.5 Plan Patient had positive Cologuard test and has never had a colonoscopy. I do recommend the patient have one now. I have advised the patient stop her Brilinta and aspirin for 5 days prior to colonoscopy. I explained endoscopy in detail to the patient. I explained the risks including but not limited to stroke or heart attack with anesthesia, perforation of the GI tract, bleeding, infection. I explained that any of these could necessitate further emergency surgery. The patient understands and all questions were answered sufficiently. The patient wishes to proceed with procedure. Maxwell Scott MD Pager: [facility] [address] [place] [address], [address] [place] [address] Office: Orders Orders: Colonoscopy Today R19.5 Coding Level of Care Code Off vis,new,level 3 Diagnoses Positive colorectal cancer screening using Cologuard test R19.5 02/13/19 1532 <Electronically signed by Maxwell randhawa MD> Date _ Maxwell Scott MD
[2019-02-13 14:47] VITALS: BMI 32.8
[2019-03-16] VITALS (8 sets, daily range): BP systolic 90–153; BP diastolic 32–64; PULSE 59–72; RESP 16; TEMP 36.2–36.7; O2SAT 94–96; BMI 32.4
--- NOTE | 2019-03-16 08:10 | H&P.OPEN ---
History of Present Illness Date of Admission: 03/16/19 The patient is a 78 year old F here for colonoscopy due to positive Cologuard. The patient is on Brilinta and aspirin. She is also having some blood per rectum which she attributes this to hemorrhoids. Past Medical/Surgical History - Planned Operation Planned Operative Procedure/s: cscope Date of Operative Procedure: 03/16/19 Permit Signed: No S.O.S: No Is This Patient Having a Total Joint: No - Previous Hospitalizations/Surgeries HX Hospitalizations: Yes - 2014 HX of Surgeries: heart stent 2014 Any Problems With Anesthesia: No You/Your Family Experience Fever (Hyperthermia) With Anes: No Cholinesterase deficiency: No - Cardiovascular Hx Chest Pain within Last 2 months: No Hx of Irregular Heartbeat and/or Afib: No - cad/follows with whg/last visit 10/2018 Hx Heart Attack: Yes - 2014 Hx Congestive Heart Failure: No Hx Rheumatic Fever: No Hx Hypertension: Yes - controlled with meds Hx Internal Defibrillator: No Hx Pacemaker: No Hx Cardiac Catheterization: Yes - 2014 What facility was last heart cath performed: [place] Date of last Heart Cath: 2014 Hx Cardiac Surgery/Stents/Etc.: Yes - stent x1 2014 Hx Stress Test: Yes - 2014 and echo 2015 HX Edema: No Hx Pain in Legs when Walking/Leg Cramps: No - Respiratory Chronic Cough: No HX of Shortness of Breath: No Hoarseness: No Hx Chronic Obstructive Pulmonary Disease (COPD): No Hx Asthma: No Hx Emphysema: No Hx Sleep Apnea: No Hx Oxygen Use at Home: No Hx Respiratory Tract Infection/Cold (presently): No Do You Snore Loudly (louder than talking or can be heard): No Do You Often Feel Tired/ Fatigued/ Sleepy [place]ring Daytime?: No Has Anyone Observed You Stop Breathing During Sleep?: No Result (for STOP score): Negative Hx Smoking: No Smoking Status: Never smoker - Gastrointestinal Hx Gastroesophageal Reflux: No - occ heartburn Hx Gastrointestinal Disorders: No Hx Gastrointestinal Bleed: No Hx Ulcer: No Hx Hiatal Hernia: No Difficulty Chewing/Swallowing: No Recent Onset of Swallowing Problems: No Special diet followed at home: No Hx Unplanned Weight Loss of 20#: No HX Unplanned Weight Gain of 20#: No - Neurological Hx Seizures: No HX Syncope/Blackout Spells/Unconsciousness: No Hx CVA/Stroke: No Hx Transient Ischemic Attacks (TIA): No Hx Multiple Sclerosis: No Hx Parkinson's Disease: No Hx Head/Neck Injury: No Hx Headaches: Yes - occ Hx Back Injury/Pain: No Recent Onset of Speech Difficulty: No Restless Legs: No Does patient have nerve stimulator: No Patient instructed to have device shut off: No Rep notified?: No - Blood Disorder Hx Leukemia: No Bleeding Tendencies: No - not prior to blood thinner Hx Deep Vein Thrombosis: No Hx High Cholesterol: Yes - on med Blood Transmitted Disease: No Hx Hepatitis: No Hx Cirrhosis: No Hx Anemia: Yes - in the past Hx Blood Disorders: No - Reproduction : No Is Patient Lactating: No Hx Hysterectomy: No Hx Tubal Ligation: No Are You Post Menopause: Yes - Genitourinary Hx Renal Disease: No - Musculoskeletal Hx Arthritis: No Hx Rheumatoid Arthritis: No Hx Gout: No Recent Onset of an Orthopedic Problem: No - Endocrine Hx Diabetes: No Insulin: No Thyroid Disease: No Hx Steroid Therapy: No - Psycho/Social Hx Substance Use: No Hx Alcohol Use: No Hx Anxiety: No Hx Depression: Yes - at times Mental Illness: No Hx Dementia: No - Miscellaneous Hx Cancer: No Recent Exposure to Contagious Disease: No Active MRSA: No Hx of C-Diff: No Any Loose Teeth: No - upper denture Allergies No Known Allergies Allergy (Verified 03/13/19 11:30) - Discharge Is Pt Admitted From a [facility], or a Halfway: No Who Could Help: family After D/C, Where Do you Plan to Go: Return Home - From the PAT History Number of Risk Factors: 2 - Physical Exam General: Alert, Oriented x3 Neck: Supple Lungs: Normal air movement Cardiovascular: Regular rate, Regular Rhythm Abdomen: Soft, Non Tender, Non-Distended Body Mass Index (BMI) 32.8 Assessment/Plan All Active Problems (Last Reviewed 02/13/19 @ 14:47 by Taryn Mariee) Hemorrhoids (Acute) Constipation (Acute) Diarrhea (Acute) Nausea (Acute) Abdominal pain (Acute) Inferior myocardial infarction (Acute) Left ventricular diastolic dysfunction (Acute) Left ventricular hypertrophy (Acute) 78-year-old female here for colonoscopy for positive Cologuard and blood per rectum I explained endoscopy in detail to the patient. I explained the risks including but not limited to stroke or heart attack with anesthesia, perforation of the GI tract, bleeding, infection. I explained that any of these could necessitate further emergency surgery. The patient understands and all questions were answered sufficiently. The patient wishes to proceed with procedure. Maxwell Scott MD Pager: [facility] [address] [place] [address] [address] [place] [address] Office: Surgery Risks - Colonoscopy Risks Include but are not Limited To: Risks include but are not limited to: Bleeding, perforation requiring further surgery, inability to complete colonoscopy requiring barium enema.
[2019-03-16] MEDS: Lactated Ringers 1,000 ML 100 ML IV (08:16)
--- NOTE | 2019-03-16 09:00 | COLBX_PTH ---
PATIENT: BOBBI JARAMILLO LOC: EN U#:[id number] AGE/SX: 78/F ROOM: RE03/16/[address]: Dr. Maxwell Scott MD : 1940 BED: DIS: 03/16/2019 SPEC #: [id number] RECD: 03/16/19 10:26 STATUS: NADIA ABHILASH #: [id number] BEVERLEY: 03/16/19 09:[address]: Maxwell Scott DEPT: SURGICAL PATHOLOGY RECD BY: Luis Forde ENTERED: 03/16/19 12:20 SP TYPE: COLON BX OTHR DR: Dr. Yash Butcher MD Tissues: Cecum, NOS Procedures: Surgery Specimen Level IV HEADER OPERATION: Colonoscopy PRE-OP DIAGNOSIS: Positive Cologuard Test TISSUE SUBMITTED: Biopsy of cecum mass MICROSCOPIC DIAGNOSIS Cecum mass, biopsy: Fragments of tubulovillous adenoma. Negative for malignancy. See comment. SIDNEY:diony 03/19/19 COMMENT Correlation with clinical, endoscopic findings and appropriate follow up are necessary. MICROSCOPIC DESCRIPTION Slides are reviewed. GROSS DESCRIPTION Received in fixative is one container labeled with the patient's name and designated biopsy of cecal mass. The specimen consists of multiple irregular fragments of light echols soft tissue that in aggregate measure 0.6 x 0.6 x 0.1 cm. The specimen is totally submitted in one cassette. / SJ:rg 03/16/19 TC:1 CPT: 89066
--- NOTE | 2019-03-16 09:36 | OP.ENDO_ITS ---
03/16/2019 Yash Butcher MD [address] [place] [address] Re : Colonoscopy procedure for Estefani Thomas Dear Dr. Butcher This procedure was performed on Saturday, March 16, 2019. My impressions and recommendations are as follows: Impressions : - One 40 mm polyp in the cecum. Biopsied. Clip was placed. - Diverticulosis in the entire examined colon. Recommendations : - Discharge patient to home. - Resume previous diet. - Continue present medications. - Resume aspirin tomorrow and Brillinta tomorrow at prior doses. - Return to my office in 1 week. - Repeat colonoscopy is recommended. The colonoscopy date will be determined after pathology results from today's exam become available for review. My findings are described in the full procedure note, which is enclosed. If I can be of further assistance, please feel free to contact me at Doctor phone number(s): , Work: . Sincerely, Maxwell Scott MD 03/16/2019 9:36:31 AM This report has been signed electronically.
== END 2019-03-16 10:27 | disposition home or self-care (01) ==
LOC: EN 07:45 → AC 07:46
PROVIDERS: Family Provider Family Medicine Geriatric Medicine; PCP Family Medicine Geriatric Medicine; Referring Provider Family Medicine Geriatric Medicine; Visit Provider Surgery
PROC: 0DJD8ZZ Inspection of Lower Intestinal Tract, Via Natural or Artificial Opening Endoscopic (ICD-10-PCS; CPT 45378; principal; 2019-03-16 08:55)
DX: D12.0 Benign neoplasm of cecum (principal); K57.30 Diverticulosis of large intestine without perforation or abscess without bleeding; K59.00 Constipation, unspecified; K64.9 Unspecified hemorrhoids; I25.5 Ischemic cardiomyopathy; I25.10 Atherosclerotic heart disease of native coronary artery without angina pectoris; I10 Essential (primary) hypertension; E78.00 Pure hypercholesterolemia, unspecified; I25.2 Old myocardial infarction; Z78.0 Asymptomatic menopausal state; Z79.82 Long term (current) use of aspirin; Z79.899 Other long term (current) drug therapy; Z86.2 Personal history of diseases of the blood and blood-forming organs and certain disorders involving the immune mechanism; Z95.5 Presence of coronary angioplasty implant and graft
CPT/HCPCS: 45380; 88305; J7120; J2405

== ENCOUNTER 2019-04-04 10:20 | Inpatient (IN) | payer MEDICARE, SELFPAY ==
[2019-03-22 14:05] VITALS: BMI 32.4
--- NOTE | 2019-03-23 08:45 | HP_ITS ---
Intake Vital Signs 03/22/19 Body Mass Index (BMI) 32.4 03/22/19 Height 5 ft 2.5 in 03/22/19 Weight: 177 lb 03/22/19 Body Mass Index (BMI) 31.8 03/22/19 Blood Pressure 140/84 H 03/22/19 Blood Pressure Location Rt brachial 03/22/19 Blood Pressure Position Sitting 03/22/19 Respiratory Rate 16 03/22/19 Pulse Rate 74 03/22/19 Pulse Source Monitor 03/22/19 Temperature 98.5 F 03/22/19 Temperature Source Oral 03/22/19 Pulse Ox 96 03/22/19 Oxygen Delivery Method room air Intake Visit Reasons: C-Scope Hemicolectomy Talent Development Director Required: No Is patient in pain?: No Allergies No Known Allergies Allergy (Verified 03/22/19 14:04) Medications Aspirin [Aspirin, Baby] 81 mg PO DAILY@0800 03/31/15 [History Confirmed 03/22/19] Nitroglycerin (INPATIENT USE) [Nitrostat] 0.4 mg SUBLINGUAL Q5M PRN 04/16/15 [History Confirmed 03/22/19] atorvastatin 80 mg tablet 80 mg PO QHS #90 tab 11/08/18 [Rx Confirmed 03/22/19] carvedilol 3.125 mg tablet 3.125 mg PO BID #180 tab 11/08/18 [Rx Confirmed 03/22/19] lisinopril 5 mg tablet 5 mg PO QDAY #90 tab 11/08/18 [Rx Confirmed 03/22/19] multivitamin tablet 1 tab PO DAILY 02/13/19 [History Confirmed 03/22/19] ticagrelor 90 mg tablet 90 mg PO BID #180 tab 03/02/19 [Rx Confirmed 03/22/19] metronidazole 500 mg tablet 500 mg PO .COMPLEX #6 tab 03/22/19 [Rx] neomycin 500 mg tablet 500 mg PO .COMPLEX #6 tab 03/22/19 [Rx] PFSH Medical History Hemorrhoids (Acute) Constipation (Acute) Diarrhea (Acute) Nausea (Acute) Abdominal pain (Acute) Essential hypertension (Chronic) Inferior myocardial infarction (Acute) Left ventricular diastolic dysfunction (Acute) Left ventricular hypertrophy (Acute) Hyperlipidemia (Chronic) Ischemic cardiomyopathy (Chronic) Atherosclerotic heart disease of [place] coronary artery without angina pectoris (Chronic) Hypertension (Inactive) Surgical History (Updated 03/22/19 @ 14:02 by Taryn Mariee) Hx of colonoscopy (Acute) Postsurgical percutaneous transluminal coronary angioplasty (PTCA) status (Chronic ~03/31/15) Presence of stent in coronary artery (Chronic ~03/31/15) Family History Sister Uterine cancer Social History (Updated 03/23/19 @ 08:45 by Maxwell Scott MD) Smoking Status: Never smoker second hand exposure: No alcohol intake: never substance use type: does not use caffeine: Yes what type of physical activity do you participate in: walking, additional details: tredmill frequency: daily seatbelt use: always HPI HPI HPI: BOBBI JARAMILLO is a 78 F who presents to the office today for HPI HPI Surgical H&P: Yes HPI: BOBBI JARAMILLO is a 78 F who presents to the office today for Follow-up after colonoscopy. Patient had a colonoscopy this week and was found to have a large polyp in the cecum. It was too large to be removed endoscopically. It came back as a tubovillous adenoma. ROS General General: No weight change or fatigue Cardio Cardiovascular: Yes heart disease and heart stent; no murmur, pacemaker, atrial fibrillation, high blood pressure, heart attack, palpitations, shortness of breat with exertion or chest pain Psych Psychiatric: No depression or anxiety Resp Respiratory: No shortness of breath, No sleep apnea, No cough, No COPD, No asthma, No emphysema, No wheezing Gastro Gastrointestinal: No abdominal pain, No nausea or vomiting, No diarrhea, No constipation, No blood in stool, No acid reflux, No hemorrhoids, No ulcers, No gallbladder problem, No black,tarry stools [place] Hematologic: No blood thinners Exam Const General: cooperative Orientation: alert, oriented x3 Resp Effort & Inspection: normal respiratory effort Auscultation: clear to auscultation bilaterally Cardio Rate: regular rate Rhythm: regular rhythm Heart Sounds: no murmurs GI Inspection: non-distended Palpation: soft, nontender Assessment & Plan Problems 1. Tubulovillous adenoma of colon D12.6 Plan The patient has a very large tubovillous adenoma in the cecum. This is too large to be removed endoscopically. I recommend right hemicolectomy. I discussed laparoscopic right hemicolectomy with the patient. I discussed this with the patient's daughter as well. I discussed the risks of the procedure including but not limited to bleeding, infection, anastomotic leak, bladder or ureteral injury. I also discussed the possibility of having to perform an open procedure. I also informed the patient that she will be staying at night in the hospital. I discussed ERAS protocol with her. I asked her to stop her Brilinta and aspirin for 5 days prior to the procedure. Maxwell Scott MD Pager: [facility] [address] [place] [address], [address] [place] [address] Office: Coding Level of Care Code Off vis,est,level 3 Diagnoses Tubulovillous adenoma of colon D12.6 03/23/19 0845 <Electronically signed by Maxwell randhawa MD> Date _ Maxwell Scott MD I have examined the patient and there are no changes since prior exam.
[2019-03-26 08:09] VITALS: BP 117/66; PULSE 76; RESP 17; TEMP 36.6; O2SAT 97; BMI 32.9
--- NOTE | 2019-03-26 08:28 | SDCEKG_ITS ---
Test Reason : Blood Pressure : / mmHG Vent. Rate : 070 BPM Atrial Rate : 070 BPM P-R Int : 180 ms QRS Dur : 082 ms QT Int : 384 ms P-R-T Axes : 052 007 029 degrees QTc Int : 414 ms Normal sinus rhythm Possible Inferior infarct , age undetermined Abnormal ECG Confirmed by SERAFIN BLAKE, JAY ([id number]), makeup editor KENZIE MARTINEZ ([id number]) on 04/02/2019 9:37:19 AM Referred By: Maxwell Scott Confirmed By:JAY BETANCOURT MD
[2019-03-26 09:13] LABS: Hematocrit 35.1 % (37-47); Hemoglobin 11.2 g/dL (12.0-15.0); Mean Corp Hgb Conc 31.9 g/dL (32-36); Mean Corpuscular Hgb 30.2 pg (27.0-32.0); Mean Corpuscular Volume 94.6 fL (81-99); Mean Platelet Vol. 9.4 fl (6.2-12.0); Platelet Count 228 K/mm3 (150-450); RBC Distribution Width CV 14.1 % (11.6-14.6); RBC Distribution Width SD 48.7 fl (35.1-43.9); Red Blood Count 3.71 M/mm3 (4.2-5.4); White Blood Count 6.9 K/mm3 (4.4-11.0)
[2019-03-26 09:35] LABS: Anion Gap 5 (5-15); BUN 13 mg/dL (7-18); BUN/Creat Ratio 14.1 RATIO (10-20); Calcium,Total 8.7 mg/dL (8.5-10.1); Chloride 107 mmol/L (98-107); Creatinine, Serum 0.92 mg/dL (0.55-1.02); EST Glomerular Filtration Rate 62 mL/min (>60); Est Glom Filt Rate - Afr Amer 76 mL/min (>60); Estimated Creatinine Clearance 39.22 ml/min; Glucose 105 mg/dL (74-106); Sodium Level 140 mmol/L (136-145)
[2019-04-04] VITALS (10 sets, daily range): BP systolic 120–163; BP diastolic 40–81; PULSE 67–79; RESP 14–18; TEMP 36.3–37; O2SAT 95–100; BMI 32.9; BMI 33.5
[2019-04-04 11:27] LABS: Bedside Glucose 91 mg/dL (70-110)
[2019-04-04] MEDS: Acetaminophen 500 MG Tablet 1000 MG PO ×3 (11:38→23:57)
[2019-04-04] MEDS: Gabapentin 600 MG Tablet PO (11:38)
[2019-04-04] MEDS: Lactated Ringers 1,000 ML 40 ML IV ×2 (11:53→17:59)
[2019-04-04] MEDS: Magnesium Sulfate 4gm/100mL 4 GM/100 ML IV.SOLN. IV (11:54)
--- NOTE | 2019-04-04 12:25 | COL._PTH ---
PATIENT: BOBBI JARAMILLO LOC: MS3 U#:[id number] AGE/SX: 78/F ROOM: MS312 RE04/04/[address]: Dr. Maxwell Scott MD : 1940 BED: 1 DIS: 04/07/2019 SPEC #: [id number] RECD: 04/04/19 16:05 STATUS: NADIA REGenny #: [id number] BEVERLEY: 04/04/19 12:[address]: Maxwell Scott DEPT: SURGICAL PATHOLOGY RECD BY: Luis Forde ENTERED: 04/05/19 08:00 SP TYPE: COLON OTHR DR: Dr. Yash Butcher MD Tissues: Colon, NOS Procedures: Surgery Specimen Level V HEADER OPERATION: Laparoscopic right hemicolectomy, ERAS PRE-OP DIAGNOSIS: Tubulovillous adenoma of colon D12.6 TISSUE SUBMITTED: Right colon and staple line MICROSCOPIC DIAGNOSIS Right colon and staple line, right hemicolectomy: Tubulovillous adenoma (4.5 cm in greatest dimension). Appendix, no pathologic diagnosis. Twelve benign lymph nodes with reactive changes. Staple line, no pathologic diagnosis. SJ:diony 04/09/19 COMMENT Please make reference to previous specimen ([id number]), cecal mass, biopsy with diagnosis of fragments of tubulovillous adenoma. Case has been reviewed in consultation with Dr. Ames who concurs with the above diagnosis. IDC:AM MICROSCOPIC DESCRIPTION Slides are reviewed. GROSS DESCRIPTION Received in fixative is one container labeled with the patient's name and designated right colon. The specimen consists of a 13 cm large bowel with attached 8.5 cm terminal ileum and attached 5.5 cm of appendix that has an average diameter of 0.5 cm. Located approximately 10.5 cm from the distal margin of resection and 9.5 cm from the proximal margin of resection within the cecum is a polypoid echols lesion measuring 4.5 x 1.7 x 1 cm and is marked with a metallic clip. The serosal surface immediately beneath the lesion is not indurated. The small and large bowel mucosa is thrown into normal folds. No other mass lesions are identified. The margins of excision are grossly unremarkable. Also present free in the container is an elongated fragment of echols mucosa measuring 5 x 0.8 cm. No lesions are identified in this fragment. The serosa in the area of the mass is inked. The attached fibrofatty tissue contains a number of grossly unremarkable nodules resembling lymph nodes. The specimen is left for additional fixation. Publishing Agent sections are submitted as follows: 1 - mucosal margins of excision, 2 - appendix, 3??equal opportunity representative section of bowel free in the container. / AM:diony 04/05/19 4 - equal opportunity representative section of uninvolved small and large bowel, 5 - ileocecal valve, 6-8 - polypoid lesion, totally submitted, 9-12 - multiple lymph nodes in each cassette. / AM:diony 04/06/19 TC:1 CPT: 89792, 75963
[2019-04-04] MEDS: Lidocaine/D5W 2,000 MG/250 ML IV.SOLN 24.5 MG IV (12:45)
[2019-04-04] MEDS: Bupivacaine 0.25% 30 ML Vial (15:00)
[2019-04-04] MEDS: BUPIVACAINE LIPOSOME/PF 20 ML VIAL OPERA.SITE (15:00)
--- NOTE | 2019-04-04 15:25 | OP.PCM_ITS ---
Problem List (1) Tubulovillous adenoma of colon Status: Acute Report of Operation Date of Procedure: 04/04/19 Pre-Operative Diagnosis: Large tubovillous adenoma of the cecum Post-Operative Diagnosis: Same Surgery/Procedure Performed:: Laparoscopic right selena-colectomy Specimen's removed: Right colon Description of Procedure: The patient was brought back to the operating room and general anesthesia was induced. The abdomen was prepped and draped in usual sterile fashion. Incision was made in the superior midline just above the umbilicus and deepened the fas lynette. The fascia was elevated and incised. A finger sweep was performed and a 12 mm port was placed into the abdomen and the abdomen was insufflated to 14 mmHg. The abdomen was inspected. Next under laparoscopic visualization a tap block was performed bilaterally. This was performed with a mixture of Marcaine, Exparel, and saline. After the tap block was performed a small incision was made in the lower midline and a 5 mm port was placed into the abdomen under direct visualization. Next a second 5 mm port was placed superior to the 12 mm port in the abdominal midline. The colon was grasped and retracted medially and using the Enseal the lateral attachments the colon were taken down and it was medialized. The right ureter was identified and intact. Next the dissection was taken superiorly to the hepatic flexure which was also taken down with Enseal. The right colon was then elevated and the vascular pedicle was identified and the peritoneum was scored. The artery and vein were dissected free and 10 mm clips were applied to both the artery and the vein. After 3 clips were placed the Enseal was used to take each vessel in between the clips. There was good hemostasis was no bleeding. Next the colon was medialized and appeared to be freed up enough to bring through the midline incision. The superior ports were removed and scalpel was used to connect the 2 small incisio ns. Electrocautery was used to dissect down to the fascia and the fascia was scored and incised using electrocautery with a finger underneath to protect the bowel. Next a wound protector was placed into the incision. The right colon was delivered into the incision. The terminal ileum was identified and about 10 cm proximal to the ileocolic valve the terminal ileum was divided using a DARCY stapler. Distally the right middle colic was identified and a small window was made in the mesocolon just proximal to this. The proximal transverse colon was taken with a DARCY stapler and the Enseal was used to take the remaining mesentery to free the right colon. Next a small enterotomy was made in the transverse colon as well as the terminal ileum and they were stable together using a DARCY stapler. The staple line was inspected with good hemostasis. The enterotomy was then closed in a transverse fashion with a TL 60 stapler. The staple line was reinforced using interrupted silk sutures. There was a crotch suture placed using 3-0 silk. Next this was placed back into the abdomen and the abdomen was reinsufflated and irrigated copiously. The abdomen was suctioned dry and there was good hemostasis. Next the wound protector was removed and the staff changed gown and gloves. Using a new tray the midline fascia was closed from inferior and superior to meet in the middle with 0 PDS suture. The midline incision was anesthetized with the Marcaine mixture and irrigated copiously. The upper midline incision was closed with interrupted 4-0 Monocryl sutures and Steri- Strips. The inferior laparoscopic port was also closed with interrupted 4-0 Monocryl suture. Patient was taken to PACU in stable condition and tolerated the procedure well. - Admit VTE Documentation VTE Mechan Device Prophylaxis: SCD's
[2019-04-04] MEDS: Ketorolac 15 MG/ML Vial IV ×2 (16:39→22:19)
[2019-04-04 19:26] LABS: Bedside Glucose 186 mg/dL (70-110)
[2019-04-04] MEDS: Docusate Sodium 100 MG Capsule PO (22:19)
[2019-04-04] MEDS: 0.9% Saline Lock 10 ML Syringe IV (22:22)
[2019-04-05 03:32] VITALS: BP 123/51; PULSE 77; RESP 16; TEMP 36.9; O2SAT 99
[2019-04-05] MEDS: 0.9% Saline Lock 10 ML Syringe IV (05:58)
[2019-04-05] MEDS: Ketorolac 15 MG/ML Vial IV ×3 (05:58→21:20)
[2019-04-05] MEDS: Acetaminophen 500 MG Tablet 1000 MG PO ×4 (05:58→23:59)
[2019-04-05 06:55] VITALS: O2SAT 94
[2019-04-05 06:59] VITALS: RESP 16; O2SAT 94
[2019-04-05 07:07] LABS: Hemoglobin 9.5 g/dL (12.0-15.0); Mean Corp Hgb Conc 32.8 g/dL (32-36); Mean Corpuscular Hgb 30.5 pg (27.0-32.0); Mean Corpuscular Volume 93.2 fL (81-99); Mean Platelet Vol. 9.4 fl (6.2-12.0); Platelet Count 234 K/mm3 (150-450); RBC Distribution Width CV 13.3 % (11.6-14.6); RBC Distribution Width SD 45.7 fl (35.1-43.9); Red Blood Count 3.11 M/mm3 (4.2-5.4)
[2019-04-05 07:20] LABS: Anion Gap 6 (5-15); BUN 14 mg/dL (7-18); BUN/Creat Ratio 12.1 RATIO (10-20); Calcium,Total 8.2 mg/dL (8.5-10.1); Chloride 99 mmol/L (98-107); Creatinine, Serum 1.16 mg/dL (0.55-1.02); EST Glomerular Filtration Rate 48 mL/min (>60); Est Glom Filt Rate - Afr Amer 58 mL/min (>60); Glucose 124 mg/dL (74-106); Potassium 4.5 mmol/L (3.5-5.1); Sodium Level 132 mmol/L (136-145)
[2019-04-05 08:40] VITALS: BP 133/51; PULSE 74; RESP 18; TEMP 36.5; O2SAT 98
--- NOTE | 2019-04-05 09:36 | PCM.PN.SRG ---
Patient Problems: Active and Suspected Problems (Last Reviewed 03/22/19 @ 14:01 by Taryn Mariee) Tubulovillous adenoma of colon (Acute) Subjective: Patient evaluated this morning. She seems drowsy. She denies nausea, vomiting. She was unable to urinate over night and Mr catheter was placed. Patient notes very minimal amount of incisional pain. - Physical Exam Vitals/I&O's: Vital Signs Temp Pulse Resp BP Pulse Ox 97.7 F L 74 18 133/51 H 98 04/05/19 08:40 04/05/19 08:40 04/05/19 08:40 04/05/19 08:40 04/05/19 08:40 Oxygen Flow Rate (L/min) 2 Oxygen Delivery Method Room Air Weight: 182 lb 15.739 oz Body Mass Index (BMI) 33.5 Intake and Output for Last 24 Hours 04/03/19 04/04/19 04/05/19 23:59 23:59 23:59 Intake Total 691.97 / 1028.97 507 / 507 Output Total 800 / 800 275 / 275 Balance -108.03 / 228.97 232 / 232 General: Alert, Oriented x3, Cooperative, - - Flush Lungs: Clear to auscultation, Normal air movement Cardiovascular: Regular rate, No murmurs Abdomen: Bowel Sounds Present, Soft, Distended, Tender - Slightly around the umbilical incision, - - Incisions- umbilical with minimal very, very slow oozing. Drainage with blood. This was changed and new dry gauze dressing applied. No erythema or infection noted. Other incisions c/d/i. Op-site intact. Laboratory Results 04/04/19 11:08: POC Glucose 91 04/04/19 19:18: POC Glucose 186 H 04/05/19 06:50: WBC 13.0 H, RBC 3.11 L, Hgb 9.5 L, Hct 29.0 L, MCV 93.2, MCH 30.5, MCHC 32.8, RDW Std Deviation 45.7 H, RDW Coeff of Kameron 13.3, Plt Count 234, MPV 9.4 04/05/19 06:50: Sodium 132 L, Potassium 4.5, Chloride 99, Carbon Dioxide 27.0, Anion Gap 6, BUN 14, Creatinine 1.16 H, Estim Creat Clear Calc 31.10, Est GFR (MDRD) Af Amer 58 L, Est GFR (MDRD) Non-Af 48 L, BUN/Creatinine Ratio 12.1, Glucose 124 H, Calcium 8.2 L Current Medications Acetaminophen (Tylenol) 1,000 mg PO Q6 [facility] Last Admin: 04/05/19 05:58 Dose: 1,000 mg Documented by: Docusate Sodium (Colace) 100 mg PO BID [facility] Last Admin: 04/04/19 22:19 Dose: 100 mg Documented by: Enoxaparin Sodium (Lovenox) 40 mg SC DAILY [facility] Lactated Ringer's () 1,000 mls @ 40 mls/hr IV .Q25H [facility] Last Infusion: 04/04/19 18:59 Dose: Infused Documented by: Lactated Ringer's () 1,000 mls @ 40 mls/hr IV .Q25H [facility] Stop: 04/05/19 15:26 Last Admin: 04/04/19 17:59 Dose: 40 mls/hr Documented by: Ketorolac Tromethamine (Toradol) 15 mg IV Q8 [facility] Stop: 04/06/19 06:01 Last Admin: 04/05/19 05:58 Dose: 15 mg Documented by: Ondansetron HCl (Zofran Odt) 4 mg PO Q6H PRN PRN PRN Reason: NAUSEA Sodium Chloride () 10 - 40 ml IV UD PRN PRN Reason: SALINE FLUSH Last Admin: 04/05/19 05:58 Dose: 10 ml Documented by: Tamsulosin HCl (Flomax) 0.4 mg PO DAILY@1000 [facility] Medical Necessity - Tobacco Use Smoking Status: Never smoker Assessment/Plan All Active Problems (Last Reviewed 03/22/19 @ 14:01 by Taryn Mariee) Tubulovillous adenoma of colon (Acute) Hx of colonoscopy (Acute) Hemorrhoids (Acute) Constipation (Acute) Diarrhea (Acute) Nausea (Acute) Abdominal pain (Acute) Inferior myocardial infarction (Acute) Left ventricular diastolic dysfunction (Acute) Left ventricular hypertrophy (Acute) I am following this patient with Dr. Scott Impression: s/p right hemicolectomy Continue Rm catheter Increase to clear liquids Continue IV fluids Give 500 cc bolus of normal saline Start Flomax Recommend up in chair and ambulating in hallway approximately 4 times per day We will continue monitoring this patient Code Visit Inpatient E&M: 62900 Subs Hosp L1 - No charge
[2019-04-05] MEDS: Enoxaparin 40 MG/0.4 ML Syringe SC (10:31)
[2019-04-05] MEDS: Docusate Sodium 100 MG Capsule PO ×2 (10:31→21:20)
[2019-04-05] MEDS: Tamsulosin HCl 0.4 MG Capsule PO (10:31)
--- NOTE | 2019-04-05 11:43 | CASEMGMT ---
SW met w/pt in room in regard to prior level of function and discharge plan. PCP: Dr. Butcher Specialists: Dr. Munoz, Dr. Fitzpatrick Insurance/Prescription Benefit: [facility] Medicare O Pharmacy: [facility] Living arrangements: Pt lives alone in an apartment, steps to basement. Pt is independent at home though does not drive. Pt's daughters or granddaughters take pt to appointments LNOK: Three daughters, grandchildren LW/POA: Has not completed. Pt interested in completing forms at some point in the future. SW gave pt information on LW/POA, along w/SW rack card and explained when she is ready she can call to make an appointment to complete the forms. SW did explain to pt that without the forms, if pt were to need decisions made for her it would be up to the three children to come to an agreement. Pt states understanding. DME/HHC: Pt uses no DME, no history of home health care SW spoke w/pt about discharge plan after this hospitalization. Pt plans to go stay w/daughter in [place] for a couple days. Pt not interested in home health care. No further needs are anticipated at this time. SW/CM remains available should any needs arise. MIHIR Kelly
[2019-04-05 14:41] VITALS: BP 120/50; PULSE 65; RESP 18; TEMP 36.8; O2SAT 96
[2019-04-05 19:33] VITALS: BP 110/42; PULSE 74; RESP 16; TEMP 37.1; O2SAT 95
[2019-04-05] MEDS: Lactated Ringers 1,000 ML 40 ML IV (19:43)
[2019-04-06] VITALS (8 sets, daily range): BP systolic 125–138; BP diastolic 46–63; PULSE 74–84; RESP 16; TEMP 36.6–37.1; O2SAT 92–99
[2019-04-06] MEDS: Ketorolac 15 MG/ML Vial IV (05:58)
[2019-04-06] MEDS: Acetaminophen 500 MG Tablet 1000 MG PO ×2 (05:59→17:10)
[2019-04-06 06:44] LABS: Absolute Lymphocyte Count 1.24 X10^3/uL (0.83-4.51); Absolute Neutrophil Count 4.9 X10^3/uL (2.0-7.7); Basophil# 0.01 X10^3/uL; Basophil% 0.1 % (0-1); Eosinophil# 0.03 X10^3/uL; Eosinophils% 0.4 % (0-5); Hematocrit 27.7 % (37-47); Hemoglobin 8.8 g/dL (12.0-15.0); Lymphocyte # 1.24 X10^3/ul (4.0); Lymphocyte % 18.4 % (19-41); Mean Corp Hgb Conc 31.8 g/dL (32-36); Mean Corpuscular Hgb 29.9 pg (27.0-32.0); Mean Corpuscular Volume 94.2 fL (81-99); Mean Platelet Vol. 9.3 fl (6.2-12.0); Monocyte# 0.56 X10^3/uL; Monocyte% 8.3 % (0-10); NRBC Flagged by Analyzer 0 % (0-5); Neutrophil # 4.89 X10^3/uL (2.7-7.7); Neutrophil % 72.5 % (47-70); Platelet Count 212 K/mm3 (150-450); RBC Distribution Width CV 13.6 % (11.6-14.6); RBC Distribution Width SD 46.7 fl (35.1-43.9); Red Blood Count 2.94 M/mm3 (4.2-5.4); White Blood Count 6.8 K/mm3 (4.4-11.0)
[2019-04-06 07:00] LABS: Anion Gap 5 (5-15); BUN 11 mg/dL (7-18); BUN/Creat Ratio 14.8 RATIO (10-20); Calcium,Total 8.2 mg/dL (8.5-10.1); Chloride 101 mmol/L (98-107); Creatinine, Serum 0.74 mg/dL (0.55-1.02); EST Glomerular Filtration Rate 80 mL/min (>60); Est Glom Filt Rate - Afr Amer 97 mL/min (>60); Estimated Creatinine Clearance 36.08 ml/min; Glucose 87 mg/dL (74-106); Potassium 4.4 mmol/L (3.5-5.1); Sodium Level 132 mmol/L (136-145)
[2019-04-06] MEDS: Enoxaparin 40 MG/0.4 ML Syringe SC (11:07)
[2019-04-06] MEDS: Docusate Sodium 100 MG Capsule PO ×2 (11:07→22:11)
[2019-04-06] MEDS: Tamsulosin HCl 0.4 MG Capsule PO (11:07)
[2019-04-07] MEDS: Acetaminophen 500 MG Tablet 1000 MG PO ×2 (00:01→05:02)
[2019-04-07 02:00] VITALS: BP 155/72; PULSE 91; RESP 16; TEMP 36.6; O2SAT 94
[2019-04-07 06:55] VITALS: O2SAT 95
[2019-04-07 08:00] VITALS: BP 137/59; PULSE 88; RESP 18; TEMP 36.8; O2SAT 95
--- NOTE | 2019-04-07 08:13 | PN.SURG_ITS ---
Patient Problems: Active and Suspected Problems (Last Reviewed 03/22/19 @ 14:01 by Taryn Mariee) Tubulovillous adenoma of colon (Acute) Subjective: Patient reports she is passing gas and tolerating a diet. She has no abdominal pain. She is passing urine well with no retention. - Physical Exam Vitals/I&O's: Vital Signs Temp Pulse Resp BP Pulse Ox 97.9 F 91 16 155/72 H 95 04/07/19 02:00 04/07/19 02:00 04/07/19 02:00 04/07/19 02:00 04/07/19 06:55 Oxygen Flow Rate (L/min) 2 Oxygen Delivery Method Room Air Weight: 182 lb 15.739 oz Body Mass Index (BMI) 33.5 Intake and Output for Last 24 Hours 04/05/19 04/06/19 04/07/19 23:59 23:59 23:59 Intake Total 3857.00 / 3857.00 510.00 / 910.00 800 / 800 Output Total 1475 / 1475 1425 / 1875 1000 / 1000 Balance 2382.00 / 2382.00 -915.00 / -965.00 -200 / -200 General: Alert, Oriented x3 Neck: No JVD Lungs: Normal air movement Cardiovascular: Regular rate, Regular Rhythm Abdomen: Soft, Non Tender, Non-Distended Current Medications Acetaminophen (Tylenol) 1,000 mg PO Q6 [facility] Last Admin: 04/07/19 05:02 Dose: 1,000 mg Documented by: Aspirin (Aspirin, Baby) 81 mg PO DAILY@0800 [facility] Atorvastatin Calcium (Lipitor) 80 mg PO QHS [facility] Carvedilol (Coreg) 3.125 mg PO BID [facility] Docusate Sodium (Colace) 100 mg PO BID [facility] Last Admin: 04/06/19 22:11 Dose: 100 mg Documented by: Enoxaparin Sodium (Lovenox) 40 mg SC DAILY [facility] Last Admin: 04/06/19 11:07 Dose: 40 mg Documented by: Lisinopril (Zestril) 5 mg PO DAILY [facility] Ondansetron HCl (Zofran Odt) 4 mg PO Q6H PRN PRN PRN Reason: NAUSEA Sodium Chloride () 10 - 40 ml IV UD PRN PRN Reason: SALINE FLUSH Last Admin: 04/05/19 05:58 Dose: 10 ml Documented by: Sodium Chloride () 10 - 40 ml IV UD PRN PRN Reason: SALINE FLUSH Tamsulosin HCl (Flomax) 0.4 mg PO DAILY@1000 [facility] Last Admin: 04/06/19 11:07 Dose: 0.4 mg Documented by: Medical Necessity - Tobacco Use Smoking Status: Never smoker Assessment/Plan All Active Problems (Last Reviewed 03/22/19 @ 14:01 by Taryn Mariee) Tubulovillous adenoma of colon (Acute) Hx of colonoscopy (Acute) Hemorrhoids (Acute) Constipation (Acute) Diarrhea (Acute) Nausea (Acute) Abdominal pain (Acute) Inferior myocardial infarction (Acute) Left ventricular diastolic dysfunction (Acute) Left ventricular hypertrophy (Acute) 78-year-old female status post right selena-colectomy for large tubovillous adenoma 1. The patient appears to be doing well. I will recheck her hemoglobin today as it has been slowly downtrending with this may be from hemodilution. As long as her hemoglobin is stable I will resume her Brilinta today and discharge her home. Maxwell Scott MD Pager: [facility] [address] [place] [address], [address] [place] [address] Office:
--- NOTE | 2019-04-07 08:15 | DCINST_ITS ---
Discharge Diet: No Restrictions Discharge Activity: Return to Normal Activity, May Shower Lifting Restrictions: no lifting over 20 lbs for 4 weeks Call your doctor if your incision/area has: Continuous Slow Oozing, Sudden Increased Bleeding, Increased Pain/ Swelling, Increased Redness, Foul Smelling Discharge, Swelling at the incision site Call your doctor if you observe: Fever of 101 or Higher Additional Dressing/Incision Instructions:: Remove steri strips in 10 days Allergies/Adverse Reactions: Allergies No Known Allergies Allergy (Verified 04/04/19 10:59) Medications to take at Discharge Aspirin [Aspirin, Baby] 81 mg PO DAILY@0800 03/31/15 Nitroglycerin (INPATIENT USE) [Nitrostat] 0.4 mg SUBLINGUAL Q5M PRN 04/16/15 multivitamin tablet 1 tab PO DAILY 02/13/19 neomycin 500 mg tablet 500 mg PO .COMPLEX #6 tab 03/22/19 Atorvastatin Calcium [Lipitor] 80 mg PO QHS 03/26/19 Carvedilol [Coreg (Beta Enrico)] 3.125 mg PO BID 03/26/19 Lisinopril [Zestril] 5 mg PO QDAY 03/26/19 Metronidazole 500 mg PO .COMPLEX 03/26/19 Ticagrelor [Brilinta] 90 mg PO BID 03/26/19 Primary Care Physician: Yash Butcher Chi, MD [Primary Care Provider] - Test Results: Test results from this visit will be discussed in further detail at your follow- up appointment, if applicable. Please Follow Up With: Maxwell Scott MD When: Please call to schedule 2 week follow up appointment. [phone]
[2019-04-07 08:20] LABS: Absolute Lymphocyte Count 1.09 X10^3/uL (0.83-4.51); Absolute Neutrophil Count 4.8 X10^3/uL (2.0-7.7); Basophil# 0.02 X10^3/uL; Basophil% 0.3 % (0-1); Eosinophil# 0.07 X10^3/uL; Eosinophils% 1.1 % (0-5); Hematocrit 28.5 % (37-47); Hemoglobin 9.2 g/dL (12.0-15.0); Lymphocyte # 1.09 X10^3/ul (4.0); Lymphocyte % 16.6 % (19-41); Mean Corp Hgb Conc 32.3 g/dL (32-36); Mean Corpuscular Hgb 30.1 pg (27.0-32.0); Mean Corpuscular Volume 93.1 fL (81-99); Mean Platelet Vol. 9.3 fl (6.2-12.0); Monocyte# 0.58 X10^3/uL; Monocyte% 8.8 % (0-10); NRBC Flagged by Analyzer 0 % (0-5); Neutrophil # 4.78 X10^3/uL (2.7-7.7); Neutrophil % 72.9 % (47-70); Platelet Count 237 K/mm3 (150-450); RBC Distribution Width CV 13.6 % (11.6-14.6); RBC Distribution Width SD 46.5 fl (35.1-43.9); Red Blood Count 3.06 M/mm3 (4.2-5.4); White Blood Count 6.6 K/mm3 (4.4-11.0)
[2019-04-07 08:46] LABS: Anion Gap 5 (5-15); BUN 10 mg/dL (7-18); BUN/Creat Ratio 15.1 RATIO (10-20); Calcium,Total 8.7 mg/dL (8.5-10.1); Chloride 104 mmol/L (98-107); Creatinine, Serum 0.66 mg/dL (0.55-1.02); EST Glomerular Filtration Rate 91 mL/min (>60); Est Glom Filt Rate - Afr Amer 110 mL/min (>60); Estimated Creatinine Clearance 36.08 ml/min; Glucose 93 mg/dL (74-106); Potassium 4.3 mmol/L (3.5-5.1); Sodium Level 138 mmol/L (136-145)
[2019-04-07] MEDS: Tamsulosin HCl 0.4 MG Capsule PO (10:03)
[2019-04-07] MEDS: Carvedilol 3.125 MG TABLET PO (10:09)
[2019-04-07] MEDS: Lisinopril 5 MG Tablet PO (10:09)
[2019-04-07] MEDS: Aspirin 81 MG TAB.CHEW PO (10:09)
[2019-04-07] MEDS: TICAGRELOR 90 MG TABLET PO (10:09)
[2019-04-07 12:33] VITALS: BP 137/59; PULSE 88; RESP 18; TEMP 36.8; O2SAT 95
--- NOTE | 2019-04-09 08:20 | DS.PCM_ITS ---
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 ~03/31/15) PTCA/ALBARO of the RCA 03/31/15 Essential hypertension (Chronic) Hyperlipidemia (Chronic) Ischemic cardiomyopathy (Chronic) Presence of stent in coronary artery (Chronic ~03/31/15) PTCA/ALBARO of the RCA 03/31/15 Atherosclerotic heart disease of [place] coronary artery without angina pectoris (Chronic) PTCA/ALBARO of the RCA 03/31/15 Hospital Course and Treatment Operations: colectomy - Laparoscopic right selena-colotomy Procedures: None Summary of Care Provided: The patient is a 78 year old F who presented for a laparoscopic right hemicolectomy due to a large tubovillous adenoma in the cecum. The patient was admitted to the floor postoperatively. She did have urinary retention and a Rm was placed. The following day the Rm was removed and she was advanced to a regular diet. On the following day after that she was tolerating diet and doing well and discharged home in stable condition. - Physical Exam Vitals/I&O's: Vital Signs Temp Pulse Resp BP Pulse Ox 98.2 F 88 18 137/59 H 95 04/07/19 12:33 04/07/19 12:33 04/07/19 12:33 04/07/19 12:33 04/07/19 12:33 Oxygen Flow Rate (L/min) 2 Oxygen Delivery Method Room Air Weight: 182 lb 15.739 oz Body Mass Index (BMI) 33.5 Intake and Output for Last 24 Hours 04/07/19 04/08/19 04/09/19 23:59 23:59 23:59 Intake Total 800 / 800 Output Total 1000 / 1000 Balance -200 / -200 Discharge Diet: No Restrictions Discharge Activity: Return to Normal Activity, May Shower Call your doctor if your incision/area has: Continuous Slow Oozing, Sudden Increased Bleeding, Increased Pain/ Swelling, Increased Redness, Foul Smelling Discharge, Swelling at the incision site Call your doctor if you observe: Fever of 101 or Higher Additional Dressing/Incision Instructions:: Remove steri strips in 10 days Home Medications: Medications to take at Discharge Aspirin [Aspirin, Baby] 81 mg PO DAILY@0800 03/31/15 multivitamin tablet 1 tab PO DAILY 02/13/19 Atorvastatin Calcium [Lipitor] 80 mg PO QHS 03/26/19 Carvedilol [Coreg (Beta Enrico)] 3.125 mg PO BID 03/26/19 Lisinopril [Zestril] 5 mg PO QDAY 03/26/19 Ticagrelor [Brilinta] 90 mg PO BID 03/26/19 Primary Care Physician: Yash Butcher Chi, MD [Primary Care Provider] - Please Follow Up With: Maxwell Scott MD When: Please call to schedule 2 week follow up appointment. [phone] Medical Necessity - Tobacco Use Smoking Status: Never smoker Meaningful Use Info Meaningful Use Diagnoses (Choose all that apply): None applicable
== END 2019-04-07 12:25 | disposition home or self-care (01) | DRG 331 ==
LOC: ACINP 10:24 → MS2 04-05 10:27 → MS3 04-05 13:42
PROVIDERS: Admitting Provider Surgery; Family Provider Family Medicine Geriatric Medicine; PCP Family Medicine Geriatric Medicine; Referring Provider Surgery; Visit Provider Surgery
PROC: 0DTF4ZZ Resection of Right Large Intestine, Percutaneous Endoscopic Approach (ICD-10-PCS; CPT 44205; principal; 2019-04-04 12:05)
DX: D12.0 Benign neoplasm of cecum (principal); R33.9 Retention of urine, unspecified; I25.10 Atherosclerotic heart disease of native coronary artery without angina pectoris; I10 Essential (primary) hypertension; E78.5 Hyperlipidemia, unspecified; I25.5 Ischemic cardiomyopathy; Z95.5 Presence of coronary angioplasty implant and graft
CPT/HCPCS: 36415; 80048; 82962; 85025; 85027; 86850; 86900; 86901; 88307; 88309; 93005; 99251; J7040; J7050; J7120; A4216; C1760; G0463; J2405

== ENCOUNTER → 2019-06-19 15:34 | Outpatient (CLI) | payer MEDICARE, SELFPAY ==
[2019-06-13 14:32] VITALS: BMI 32.1
[2019-06-19 16:34] LABS: Absolute Neutrophil Count 5.5 X10^3/uL (2.0-7.7); Basophil# 0.03 X10^3/uL; Basophil% 0.4 % (0-1); Eosinophil# 0.17 X10^3/uL; Hemoglobin 9.1 g/dL (12.0-15.0); Lymphocyte % 22.8 % (19-41); Mean Corp Hgb Conc 30.3 g/dL (32-36); Mean Corpuscular Hgb 27.7 pg (27.0-32.0); Mean Corpuscular Volume 91.5 fL (81-99); Mean Platelet Vol. 9.2 fl (6.2-12.0); Monocyte# 0.71 X10^3/uL; Monocyte% 8.5 % (0-10); NRBC Flagged by Analyzer 0 % (0-5); Neutrophil # 5.48 X10^3/uL (2.7-7.7); Neutrophil % 65.9 % (47-70); Platelet Count 389 K/mm3 (150-450); RBC Distribution Width CV 12.8 % (11.6-14.6); RBC Distribution Width SD 42.2 fl (35.1-43.9); Red Blood Count 3.28 M/mm3 (4.2-5.4); White Blood Count 8.3 K/mm3 (4.4-11.0)
[2019-06-19 16:39] LABS: ALB/GLOB Ratio 0.9 RATIO (0.9-2.4); AST(SGOT) 18 U/L (15-37); Alanine Aminotransfer ALT/SGPT 25 U/L (13-56); Albumin, Serum 3.5 g/dL (3.2-5.0); Alkaline Phosphatase 116 U/L (45-117); Anion Gap 5 (5-15); BUN 15 mg/dL (7-18); BUN/Creat Ratio 14.2 RATIO (10-20); Chloride 104 mmol/L (98-107); Cholesterol 156 mg/dL (200); Creatinine, Serum 1.06 mg/dL (0.55-1.02); EST Glomerular Filtration Rate 53 mL/min (>60); Est Glom Filt Rate - Afr Amer 64 mL/min (>60); Glucose 94 mg/dL (74-106); High Density Lipoprotein 59 mg/dL; Potassium 4.9 mmol/L (3.5-5.1); Protein, Total 7.5 g/dL (6.4-8.2); Sodium Level 139 mmol/L (136-145); Thyroid Stim Hormone (TSH) 1.36 uIU/mL (0.358-3.74); Triglycerides 125 mg/dL; Very Low Density Lipoprotein 25 mg/dL (5-40)
[2019-06-19 16:58] LABS: Vitamin D,25 Hydroxy 56.5 ng/mL (29.95-100.01)
== END ==
LOC: POLAB3 15:35
PROVIDERS: PCP Family Medicine Geriatric Medicine; Visit Provider Family Medicine Geriatric Medicine
DX: I10 Essential (primary) hypertension (principal); E78.5 Hyperlipidemia, unspecified; E55.9 Vitamin D deficiency, unspecified
CPT/HCPCS: 36415; 80053; 80061; 82306; 84443; 85025

== ENCOUNTER → 2019-06-26 14:41 | Outpatient (CLI) | payer MEDICARE, SELFPAY ==
[2019-06-13 14:32] VITALS: BMI 32.1
--- NOTE | 2019-06-26 14:43 | ECHOD_ITS ---
Reason For Study: MURMUR Procedure This was a 2D Doppler, Color Flow transthoracic echocardiogram. The study was technically difficult. Due to body habitus. Exam performed in department. Left Ventricle Normal LV size. Left ventricular systolic function is normal. The estimated ejection fraction is 55 %. There is evidence of diastolic dysfunction. No regional wall motion abnormalities noted. Right Ventricle Normal RV size. Normal systolic function. Atria The left atrium is mildly enlarged. Normal right atrium. No doppler evidence for ASD. Mitral Valve There is no mitral annular calcification. Mild focal mitral valve calcification of the anterior leaflet. Mild (1+) mitral valve insufficiency. Tricuspid Valve Normal tricuspid valve. Mild tricuspid valve insufficiency. Right ventricular systolic pressure estimated to be 39 mmHg. Aortic Valve Trisinus/trileaflet aortic valve. Mild diffuse aortic valve thickening. Moderate focal aortic valve calcification. Mild aortic stenosis. Pulmonic Valve The pulmonic valve is not well visualized. Trivial pulmonic valve insufficiency. Great Vessels Normal sized aortic root. Calcified aortic root. Pericardium/Pleural No pericardial effusion. MMode/2D Measurements & Calculations LVIDd: 4.7 cm IVSd: 1.1 cm LVOT diam: 2.0 cm LVIDs: 3.4 cm LVPWd: 1.1 cm LVOT area: 3.2 cm2 RVDd: 2.8 cm FS: 29.4 % Ao root diam: 3.4 cm LAV(MOD-bp): 63.9 ml LA A4 area: 18.6 cm2 LAV(MOD-bp) Indexed: 34.5 ml/m2 LAV(MOD-sp2): 59.4 ml LAV(MOD-sp4): 60.6 ml LA dimension(2D): 3.8 cm RA A4 area: 12.4 cm2 Time Measurements MV dec time: 0.19 sec Doppler Measurements & Calculations MV E max jovany: 81.5 cm/sec Lat Peak E' Jovany: 11.1 cm/sec Med Peak E' Jovany: 5.8 cm/sec MV A max jovany: 89.0 cm/sec E/E' lat: 7.3 E/E' med: 14.0 MV E/A: 0.92 Ao V2 max: 198.2 cm/sec LV V1 max: 107.1 cm/sec SV(LVOT): 81.4 ml Ao max P.7 mmHg LV V1 max P.6 mmHg Ao V2 mean: 139.6 cm/sec LV V1 mean P.4 mmHg Ao mean P.5 mmHg LV V1 mean: 73.2 cm/sec Ao V2 VTI: 48.1 cm LV V1 VTI: 25.8 cm KIRSTEN(I,D): 1.7 cm2 KIRSTEN(V,D): 1.7 cm2 PA V2 max: 100.3 cm/sec TR max jovany: 301.3 cm/sec TR max P.3 mmHg Interpretation Summary The study was technically difficult. Left ventricular systolic function is normal. The estimated ejection fraction is 55 %. The left atrium is mildly enlarged. Mild focal mitral valve calcification of the anterior leaflet. Mild (1+) mitral valve insufficiency. Mild tricuspid valve insufficiency. Mild aortic stenosis. Trivial pulmonic valve insufficiency. Calcified aortic root. Right ventricular systolic pressure estimated to be 39 mmHg. There is evidence of diastolic dysfunction. Ordering Physician: Anders Fitzpatrick Referring Physician: Yash Butcher Chi Performed By: Mckenzie Glez, ASTRID, RVT
== END ==
PROVIDERS: PCP Family Medicine Geriatric Medicine; Referring Provider Internal Medicine Cardiovascular Disease; Visit Provider Internal Medicine Cardiovascular Disease
DX: R01.1 Cardiac murmur, unspecified (principal); I25.10 Atherosclerotic heart disease of native coronary artery without angina pectoris; I35.9 Nonrheumatic aortic valve disorder, unspecified
CPT/HCPCS: 93306

== ENCOUNTER → 2019-06-28 13:02 | Outpatient (CLI) | payer MEDICARE, SELFPAY ==
[2019-06-13 14:32] VITALS: BMI 32.1
[2019-06-28 15:45] LABS: Absolute Lymphocyte Count 1.79 X10^3/uL (0.83-4.51); Absolute Neutrophil Count 5.9 X10^3/uL (2.0-7.7); Basophil# 0.02 X10^3/uL; Basophil% 0.2 % (0-1); Eosinophil# 0.14 X10^3/uL; Eosinophils% 1.6 % (0-5); Hematocrit 29.7 % (37-47); Lymphocyte # 1.79 X10^3/ul (4.0); Lymphocyte % 20.8 % (19-41); Mean Corp Hgb Conc 30.3 g/dL (32-36); Mean Corpuscular Hgb 27.8 pg (27.0-32.0); Mean Corpuscular Volume 91.7 fL (81-99); Mean Platelet Vol. 9.5 fl (6.2-12.0); Monocyte# 0.75 X10^3/uL; Monocyte% 8.7 % (0-10); NRBC Flagged by Analyzer 0 % (0-5); Neutrophil % 68.5 % (47-70); Platelet Count 371 K/mm3 (150-450); RBC Distribution Width CV 12.7 % (11.6-14.6); RBC Distribution Width SD 41.9 fl (35.1-43.9); RET-HE 27.4 pg (30-35); Red Blood Count 3.24 M/mm3 (4.2-5.4); Reticulocyte Count 1.79 % (0.5-1.5); White Blood Count 8.6 K/mm3 (4.4-11.0)
[2019-06-28 16:12] LABS: Vitamin B12 486 pg/mL (211-911)
[2019-06-28 16:44] LABS: Ferritin 9 ng/mL (8-252); Iron 32 ug/dL (50-170); Iron Binding Capacity,Total 466 ug/dL (250-450)
== END ==
PROVIDERS: PCP Family Medicine Geriatric Medicine; Visit Provider Family Medicine Geriatric Medicine
DX: D64.9 Anemia, unspecified (principal)
CPT/HCPCS: 36415; 82607; 82728; 82746; 83540; 83550; 85025; 85045

== ENCOUNTER 2019-07-20 06:13 | Day surgery (SDC) | payer MEDICARE, SELFPAY ==
--- NOTE | 2019-07-05 02:52 | HP_ITS ---
Intake Vital Signs 07/05/19 BMI 32.1 07/05/19 Height 5 ft 2.5 in 07/05/19 Weight: 181 lb 3 oz 07/05/19 BMI 32.5 07/05/19 BP 167/64 H 07/05/19 Blood Pressure Location Rt brachial 07/05/19 Position Sitting 07/05/19 Respiration 20 H 07/05/19 Pulse 71 07/05/19 Pulse Oximetry (%) 96 Intake Visit Reasons: EGD/Anemia Chief Complaint: anemia Esthetics Instructor Required: No Is patient in pain?: No Allergies No Known Allergies Allergy (Verified 06/13/19 14:32) Medications Aspirin [Aspirin, Baby] 81 mg PO DAILY@0800 03/31/15 [History Confirmed 06/13/19] multivitamin 1 tab PO DAILY 02/13/19 [History Confirmed 07/05/19] Atorvastatin Calcium [Lipitor] 80 mg PO QHS 03/26/19 [History Confirmed 07/05/19] Carvedilol [Coreg (Beta Enrico)] 3.125 mg PO BID 03/26/19 [History Confirmed 07/05/19] Lisinopril [Zestril] 5 mg PO QDAY 03/26/19 [History Confirmed 07/05/19] Ticagrelor [Brilinta] 90 mg PO BID 03/26/19 [History Confirmed 06/13/19] nitroglycerin 0.4 mg sublingual tablet 0.4 mg SUBLINGUAL Q5-15M PRN 06/13/19 [History Confirmed 07/05/19] omeprazole 40 mg capsule,delayed release 40 mg PO DAILY #30 cap 07/05/19 [Rx Confirmed 07/05/19] Is last menstrual period known: No Post menopausal: Yes Patient : No PFSH Medical History Hemorrhoids (Acute) Constipation (Acute) Diarrhea (Acute) Nausea (Acute) Abdominal pain (Acute) Essential hypertension (Chronic) Inferior myocardial infarction (Acute) Left ventricular diastolic dysfunction (Acute) Left ventricular hypertrophy (Acute) Hyperlipidemia (Chronic) Ischemic cardiomyopathy (Chronic) Atherosclerotic heart disease of [place] coronary artery without angina pectoris (Chronic) Colon polyp (Resolved) Hypertension (Inactive) Surgical History Postsurgical percutaneous transluminal coronary angioplasty (PTCA) status (Chronic ~03/31/15) Presence of stent in coronary artery (Chronic ~03/31/15) Hx of colonoscopy (Resolved) Family History Sister Uterine cancer Social History (Updated 07/05/19 @ 14:[address] Maxwell Scott MD) Smoking Status: Never smoker second hand exposure: No alcohol intake: never substance use type: does not use caffeine: Yes what type of physical activity do you participate in: walking, additional details: tredmill frequency: daily seatbelt use: always HPI HPI HPI: BOBBI JARAMILLO, is a 78 F who presents to the office today for HPI HPI Surgical H&P: Yes HPI: BOBBI JARAMILLO, is a 78 F who presents to the office today for Iron deficiency anemia. The patient had Colonoscopy in February for positive cologuard. 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 The patient underwent a right hemicolectomy for this and was doing well postoperatively. She continues to be anemic. She is not describing any abdominal pain or gross blood in her stool. ROS General General: Yes fatigue; no weight change, appetite, colon cancer, breast cancer or weakness HEENT HEENT: No difficulty swallowing, eye injury, eye surgery, swollen glands or hoarseness Endo Endocrine: No thyroid disease, diabetes mellitus, thyroid cancer, Hair loss, heat intolerance or cold intolerance Musc Musculoskeletal: No back problems, arthritis, rheumatoid arthritis, gout or joint pain Cardio Cardiovascular: Yes high blood pressure, heart attack and heart stent; no murmur, pacemaker, heart disease, atrial fibrillation, palpitations, shortness of breat with exertion or chest pain Resp Respiratory: No shortness of breath, No sleep apnea, No cough, No COPD, No asthma, No emphysema, No wheezing Gastro Gastrointestinal: No abdominal pain, No nausea or vomiting, No diarrhea, No constipation, No blood in stool, No acid reflux, Yes hemorrhoids, No ulcers, No gallbladder problem, Yes black,tarry stools [place] Hematologic: Yes blood thinners, Yes blood disorders, No bleeding, Yes anemia, No blood clots Neuro Neurologic: No weakness Exam Const General: cooperative Orientation: alert, oriented x3 Resp Effort & Inspection: normal respiratory effort Auscultation: clear to auscultation bilaterally Cardio Rate: regular rate Rhythm: regular rhythm Heart Sounds: no murmurs GI Inspection: non-distended Palpation: soft, nontender Assessment & Plan Problems 1. Iron deficiency anemia, unspecified iron deficiency anemia type D50.9 Plan The patient has continuing iron deficiency anemia with no abdominal pain or blood in her stool. There were no other lesions found on colonoscopy. I will perform an EGD and start her on a PPI. I explained endoscopy in detail to the patient. I explained the risks including but not limited to stroke or heart attack with anesthesia, perforation of the GI tract, bleeding, infection. I explained that any of these could necessitate further emergency surgery. The patient understands and all questions were answered sufficiently. The patient wishes to proceed with procedure. Maxwell Scott MD Pager: [facility] [address] [place] [address] [address] [place] [address] Office: Orders Orders: EGD Today D50.9 Medications New: omeprazole 40 mg PO DAILY 30 caps 1RF Coding Level of Care Code Global Post Op Diagnoses Iron deficiency anemia, unspecified iron deficiency anemia type D50.9 ??Iron deficiency anemia type: unspecified iron deficiency 07/05/19 5832 <Electronically signed by Maxwell randhawa MD> Date _ Maxwell Scott MD I have re-examined the patient. There are no clinical changes since date of exam.
[2019-07-05 13:56] VITALS: BMI 32.1
[2019-07-20] VITALS (8 sets, daily range): BP systolic 81–136; BP diastolic 34–50; PULSE 60–70; RESP 15–16; TEMP 36.1–36.4; O2SAT 95–100; BMI 33.7
[2019-07-20] MEDS: Lactated Ringers 1,000 ML 100 ML IV (06:48)
--- NOTE | 2019-07-20 07:31 | OP.EGD_ITS ---
Patient Name: Estefani Thomas Procedure Date: 07/20/2019 7:08 AM Date of : 1940 Age: 78 Procedure: Upper GI endoscopy Indications: Iron deficiency anemia Providers: Maxwell Scott MD Referring MD: Yash Butcher MD Medicines: Monitored Anesthesia Care Patient Profile: This is a 78 year old female. Refer to note in patient chart for documentation of history and physical. Complications: No immediate complications. Estimated blood loss: Minimal. Procedure: Pre-Anesthesia Assessment: - Prior to the procedure, a History and Physical was performed, and patient medications and allergies were reviewed. The patient's tolerance of previous anesthesia was also reviewed. The risks and benefits of the procedure and the sedation options and risks were discussed with the patient. All questions were answered, and informed consent was obtained. Prior Anticoagulants: The patient has taken no previous anticoagulant or antiplatelet agents. After reviewing the risks and benefits, the patient was deemed in satisfactory condition to undergo the procedure. After obtaining informed consent, the endoscope was passed under direct vision. Throughout the procedure, the patient's blood pressure, pulse, and oxygen saturations were monitored continuously. The gastroscope was introduced through the mouth, and advanced to the third part of duodenum. The upper GI endoscopy was accomplished without difficulty. The patient tolerated the procedure well. Scope In: 7:24:59 AM Scope Out: 7:27:54 AM Total Procedure Duration Time 0 hours 2 minutes 55 seconds Findings: A medium-sized hiatal hernia was present. The stomach was normal. The examined duodenum was normal. Impression: - Medium-sized hiatal hernia. - Normal stomach. - Normal examined duodenum. - No specimens collected. Recommendation: - Discharge patient to home. - Resume previous diet. - Continue present medications. - Return to primary care physician at appointment to be scheduled. Procedure Code(s): --- Professional --- 16423, Esophagogastroduodenoscopy, flexible, transoral; diagnostic, including collection of specimen(s) by brushing or washing, when performed (separate procedure) Diagnosis Code(s): --- Professional --- K44.9, Diaphragmatic hernia without obstruction or gangrene D50.9, Iron deficiency anemia, unspecified CPT copyright 2017 [employer]. All rights reserved. The codes documented in this report are preliminary and upon tray line supervisor review may be revised to meet current compliance requirements. Maxwell Scott MD 07/20/2019 7:31:05 AM This report has been signed electronically. Number of Addenda: 0 Note Initiated On: 07/20/2019 7:08 AM
--- NOTE | 2019-07-20 07:31 | OP.CCLET_ITS ---
07/20/2019 Yash Butcher MD [address] [place] [address] Re : Upper GI endoscopy procedure for Estefani Thomas Dear Dr. Butcher This procedure was performed on Saturday, July 20, 2019. My impressions and recommendations are as follows: Impressions : - Medium-sized hiatal hernia. - Normal stomach. - Normal examined duodenum. - No specimens collected. Recommendations : - Discharge patient to home. - Resume previous diet. - Continue present medications. - Return to primary care physician at appointment to be scheduled. My findings are described in the full procedure note, which is enclosed. If I can be of further assistance, please feel free to contact me at Doctor phone number(s): , Work: . Sincerely, Maxwell Scott MD 07/20/2019 7:31:05 AM This report has been signed electronically.
== END 2019-07-20 08:24 | disposition home or self-care (01) ==
LOC: EN 06:14 → AC 06:16
PROVIDERS: PCP Family Medicine Geriatric Medicine; Referring Provider Family Medicine Geriatric Medicine; Visit Provider Surgery
PROC: 0DJ08ZZ Inspection of Upper Intestinal Tract, Via Natural or Artificial Opening Endoscopic (ICD-10-PCS; CPT 43235; principal; 2019-07-20 07:25)
DX: K44.9 Diaphragmatic hernia without obstruction or gangrene (principal); D50.9 Iron deficiency anemia, unspecified; I25.10 Atherosclerotic heart disease of native coronary artery without angina pectoris; I10 Essential (primary) hypertension; E78.00 Pure hypercholesterolemia, unspecified; Z78.0 Asymptomatic menopausal state; I25.2 Old myocardial infarction; Z79.82 Long term (current) use of aspirin; Z79.899 Other long term (current) drug therapy; Z90.49 Acquired absence of other specified parts of digestive tract; Z95.5 Presence of coronary angioplasty implant and graft
CPT/HCPCS: 43235; J7120; J2405

== ENCOUNTER → 2019-07-27 13:46 | Outpatient (CLI) | payer MEDICARE, SELFPAY ==
[2019-07-20 06:41] VITALS: BMI 33.7
[2019-07-27 14:15] LABS: Hemoglobin 8.5 g/dL (12.0-15.0)
== END ==
PROVIDERS: PCP Family Medicine Geriatric Medicine; Referring Provider Family Medicine Geriatric Medicine; Visit Provider Family Medicine Geriatric Medicine
DX: D50.9 Iron deficiency anemia, unspecified (principal)
CPT/HCPCS: 36415; 85014; 85018

== ENCOUNTER → 2019-07-30 16:28 | Outpatient (CLI) | payer MEDICARE, SELFPAY ==
[2019-07-20 06:41] VITALS: BMI 33.7
[2019-07-30 17:07] LABS: Hematocrit 29.9 % (37-47); Hemoglobin 8.9 g/dL (12.0-15.0)
== END ==
PROVIDERS: PCP Family Medicine Geriatric Medicine; Visit Provider Family Medicine Geriatric Medicine
DX: D64.9 Anemia, unspecified (principal)
CPT/HCPCS: 36415; 85014; 85018

== ENCOUNTER → 2019-08-30 11:19 | Outpatient (CLI) | payer MEDICARE, SELFPAY ==
[2019-07-20 06:41] VITALS: BMI 33.7
[2019-08-30 12:43] LABS: Hematocrit 30.8 % (37-47)
== END ==
PROVIDERS: PCP Family Medicine Geriatric Medicine; Referring Provider Family Medicine Geriatric Medicine; Visit Provider Family Medicine Geriatric Medicine
DX: D50.9 Iron deficiency anemia, unspecified (principal)
CPT/HCPCS: 36415; 85014; 85018

== ENCOUNTER → 2019-12-25 15:14 | Outpatient (CLI) | payer MEDICARE, SELFPAY ==
[2019-12-13 16:00] VITALS: BMI 34.9
[2019-12-25 15:44] LABS: Absolute Lymphocyte Count 1.99 X10^3/uL (0.83-4.51); Absolute Neutrophil Count 4.7 X10^3/uL (2.0-7.7); Basophil# 0.02 X10^3/uL; Basophil% 0.3 % (0-1); Eosinophil# 0.29 X10^3/uL; Eosinophils% 3.8 % (0-5); Hematocrit 31.2 % (37-47); Lymphocyte # 1.99 X10^3/ul (4.0); Lymphocyte % 26.1 % (19-41); Mean Corp Hgb Conc 28.8 g/dL (32-36); Mean Corpuscular Hgb 24.3 pg (27.0-32.0); Mean Corpuscular Volume 84.1 fL (81-99); Mean Platelet Vol. 9.5 fl (6.2-12.0); Monocyte# 0.63 X10^3/uL; Monocyte% 8.3 % (0-10); NRBC Flagged by Analyzer 0 % (0-5); Neutrophil # 4.67 X10^3/uL (2.7-7.7); Neutrophil % 61.2 % (47-70); Platelet Count 317 K/mm3 (150-450); RBC Distribution Width CV 15.9 % (11.6-14.6); Red Blood Count 3.71 M/mm3 (4.2-5.4); White Blood Count 7.6 K/mm3 (4.4-11.0)
[2019-12-25 16:25] LABS: Vitamin D,25 Hydroxy 78.6 ng/mL
[2019-12-25 16:44] LABS: ALB/GLOB Ratio 0.9 RATIO (0.9-2.4); AST(SGOT) 16 U/L (15-37); Alanine Aminotransfer ALT/SGPT 16 U/L (13-56); Albumin, Serum 3.5 g/dL (3.2-5.0); Alkaline Phosphatase 120 U/L (45-117); Anion Gap 4 (5-15); BUN 13 mg/dL (7-18); BUN/Creat Ratio 13.7 RATIO (10-20); Calcium,Total 8.9 mg/dL (8.5-10.1); Chloride 105 mmol/L (98-107); Cholesterol 151 mg/dL (200); Creatinine, Serum 0.95 mg/dL (0.55-1.02); EST Glomerular Filtration Rate 60 mL/min (>60); Est Glom Filt Rate - Afr Amer 73 mL/min (>60); Globulin 4.1 g/dL (2.2-4.2); Glucose 97 mg/dL (74-106); High Density Lipoprotein 54 mg/dL; Potassium 4.2 mmol/L (3.5-5.1); Protein, Total 7.6 g/dL (6.4-8.2); Sodium Level 138 mmol/L (136-145); Thyroid Stim Hormone (TSH) 1.69 uIU/mL (0.358-3.74); Triglycerides 94 mg/dL; Very Low Density Lipoprotein 19 mg/dL (5-40)
== END ==
PROVIDERS: PCP Family Medicine Geriatric Medicine; Visit Provider Family Medicine Geriatric Medicine
DX: I10 Essential (primary) hypertension (principal); E78.5 Hyperlipidemia, unspecified; E55.9 Vitamin D deficiency, unspecified
CPT/HCPCS: 36415; 80053; 80061; 82306; 84443; 85025

== ENCOUNTER → 2020-01-23 13:30 | Outpatient (CLI) | payer MEDICARE, SELFPAY ==
[2019-12-13 16:00] VITALS: BMI 34.9
[2020-01-23] MEDS: 0.9% NaCl Peripheral Flush Adult/Peds IV (14:16)
[2020-01-23] MEDS: 0.9% NaCl IVPB Med Flush (250 mL) 15 ML IV (14:16)
[2020-01-23 14:17] VITALS: BP 148/52; PULSE 69; RESP 16; TEMP 36.4; BMI 34.5
[2020-01-23 14:50] VITALS: BP 148/52; PULSE 69; RESP 16; TEMP 36.3; O2SAT 98
[2020-01-23 15:30] VITALS: BP 132/67; PULSE 68
== END ==
PROVIDERS: PCP Family Medicine Geriatric Medicine; Referring Provider Family Medicine Geriatric Medicine; Visit Provider Family Medicine Geriatric Medicine
DX: D50.9 Iron deficiency anemia, unspecified (principal); K90.9 Intestinal malabsorption, unspecified
CPT/HCPCS: 96365; J1756; J7050; A4216

== ENCOUNTER → 2020-01-25 13:38 | Outpatient (CLI) | payer MEDICARE, SELFPAY ==
[2019-12-13 16:00] VITALS: BMI 34.9
[2020-01-23 14:17] VITALS: BMI 34.5
[2020-01-25 13:49] VITALS: BP 161/65; PULSE 78; RESP 16; TEMP 36.8; O2SAT 92; BMI 33.5
[2020-01-25] MEDS: 0.9% NaCl IVPB Med Flush (250 mL) 15 ML IV (13:52)
[2020-01-25] MEDS: 0.9% NaCl Peripheral Flush Adult/Peds IV (13:52)
[2020-01-25 14:59] VITALS: BP 161/65; PULSE 78; RESP 16; TEMP 36.8; O2SAT 92
== END ==
PROVIDERS: PCP Family Medicine Geriatric Medicine; Referring Provider Family Medicine Geriatric Medicine; Visit Provider Family Medicine Geriatric Medicine
DX: D50.9 Iron deficiency anemia, unspecified (principal)
CPT/HCPCS: 96365; J1756; J7050; A4216

== ENCOUNTER → 2020-01-28 13:26 | Outpatient (CLI) | payer MEDICARE, SELFPAY ==
[2019-12-13 16:00] VITALS: BMI 34.9
[2020-01-25 13:49] VITALS: BMI 33.5
[2020-01-28 14:00] VITALS: BP 164/58; PULSE 66; RESP 16; TEMP 36.6; O2SAT 97; BMI 33.5
[2020-01-28] MEDS: 0.9% NaCl IVPB Med Flush (250 mL) 15 ML IV (14:10)
[2020-01-28] MEDS: 0.9% NaCl Peripheral Flush Adult/Peds IV (14:10)
[2020-01-28 14:45] VITALS: BP 174/66; PULSE 71; RESP 16; TEMP 36.6; O2SAT 97
== END ==
PROVIDERS: PCP Family Medicine Geriatric Medicine; Referring Provider Family Medicine Geriatric Medicine; Visit Provider Family Medicine Geriatric Medicine
DX: D50.9 Iron deficiency anemia, unspecified (principal); K90.9 Intestinal malabsorption, unspecified
CPT/HCPCS: 96365; J1756; J7050; A4216

== ENCOUNTER → 2020-01-30 13:53 | Outpatient (CLI) | payer MEDICARE, SELFPAY ==
[2019-12-13 16:00] VITALS: BMI 34.9
[2020-01-28 14:00] VITALS: BMI 33.5
[2020-01-30 14:00] VITALS: BP 171/56; PULSE 91; RESP 16; TEMP 36.6; O2SAT 93; BMI 33.5
[2020-01-30 15:27] VITALS: BP 150/70; PULSE 77; RESP 16; O2SAT 95
== END ==
PROVIDERS: PCP Family Medicine Geriatric Medicine; Referring Provider Family Medicine Geriatric Medicine; Visit Provider Family Medicine Geriatric Medicine
DX: D50.9 Iron deficiency anemia, unspecified (principal)
CPT/HCPCS: 96365; J1756; J7050; A4216

== ENCOUNTER → 2020-02-01 13:20 | Outpatient (CLI) | payer MEDICARE, SELFPAY ==
[2019-12-13 16:00] VITALS: BMI 34.9
[2020-01-30 14:00] VITALS: BMI 33.5
[2020-02-01 13:54] VITALS: BP 184/82; PULSE 67; RESP 16; O2SAT 96; BMI 33.5
[2020-02-01] MEDS: 0.9% NaCl Peripheral Flush Adult/Peds IV (13:54)
[2020-02-01 14:38] VITALS: BP 157/77; PULSE 68; RESP 16
== END ==
PROVIDERS: PCP Family Medicine Geriatric Medicine; Referring Provider Family Medicine Geriatric Medicine; Visit Provider Family Medicine Geriatric Medicine
DX: D50.9 Iron deficiency anemia, unspecified (principal)
CPT/HCPCS: 96365; J1756; J7050; A4216

== ENCOUNTER → 2020-03-26 16:04 | Outpatient (CLI) | payer MEDICARE, SELFPAY ==
[2020-03-26 15:26] VITALS: BMI 34.0
[2020-03-26 17:18] LABS: Absolute Lymphocyte Count 2.47 X10^3/uL (0.83-4.51); Absolute Neutrophil Count 5.3 X10^3/uL (2.0-7.7); Basophil# 0.04 X10^3/uL; Basophil% 0.4 % (0-1); Eosinophil# 0.22 X10^3/uL; Eosinophils% 2.4 % (0-5); Hematocrit 41.1 % (37-47); Hemoglobin 12.7 g/dL (12.0-15.0); Lymphocyte # 2.47 X10^3/ul (4.0); Lymphocyte % 27.5 % (19-41); Mean Corp Hgb Conc 30.9 g/dL (32-36); Mean Corpuscular Hgb 27.9 pg (27.0-32.0); Mean Corpuscular Volume 90.3 fL (81-99); Mean Platelet Vol. 10.4 fl (6.2-12.0); Monocyte# 0.91 X10^3/uL; Monocyte% 10.1 % (0-10); NRBC Flagged by Analyzer 0 % (0-5); Neutrophil # 5.32 X10^3/uL (2.7-7.7); Neutrophil % 59.3 % (47-70); Platelet Count 294 K/mm3 (150-450); RBC Distribution Width CV 17.6 % (11.6-14.6); RBC Distribution Width SD 58.9 fl (35.1-43.9); Red Blood Count 4.55 M/mm3 (4.2-5.4)
== END ==
PROVIDERS: PCP Family Medicine Geriatric Medicine; Referring Provider Nurse Practitioner Family; Visit Provider Nurse Practitioner Family
DX: E78.5 Hyperlipidemia, unspecified (principal); D50.9 Iron deficiency anemia, unspecified
CPT/HCPCS: 36415; 85025

== ENCOUNTER → 2020-06-25 15:25 | Outpatient (CLI) | payer MEDICARE, SELFPAY ==
[2020-03-26 15:26] VITALS: BMI 34.0
[2020-06-25 18:18] LABS: Absolute Lymphocyte Count 3.18 X10^3/uL (0.83-4.51); Absolute Neutrophil Count 4.8 X10^3/uL (2.0-7.7); Basophil# 0.03 X10^3/uL; Basophil% 0.3 % (0-1); Eosinophil# 0.21 X10^3/uL; Eosinophils% 2.3 % (0-5); Hematocrit 42.3 % (37-47); Hemoglobin 12.9 g/dL (12.0-15.0); Lymphocyte # 3.18 X10^3/ul (4.0); Lymphocyte % 35.1 % (19-41); Mean Corp Hgb Conc 30.5 g/dL (32-36); Mean Corpuscular Hgb 29.1 pg (27.0-32.0); Mean Corpuscular Volume 95.3 fL (81-99); Monocyte# 0.81 X10^3/uL; NRBC Flagged by Analyzer 0 % (0-5); Neutrophil # 4.79 X10^3/uL (2.7-7.7); Platelet Count 314 K/mm3 (150-450); RBC Distribution Width CV 13.2 % (11.6-14.6); RBC Distribution Width SD 46.5 fl (35.1-43.9); Red Blood Count 4.44 M/mm3 (4.2-5.4); White Blood Count 9.1 K/mm3 (4.4-11.0)
[2020-06-25 18:26] LABS: Vitamin D,25 Hydroxy 52.6 ng/mL
[2020-06-25 18:34] LABS: ALB/GLOB Ratio 0.9 RATIO (0.9-2.4); AST(SGOT) 22 U/L (15-37); Alanine Aminotransfer ALT/SGPT 18 U/L (13-56); Albumin, Serum 3.8 g/dL (3.2-5.0); Alkaline Phosphatase 122 U/L (45-117); Anion Gap 4 (5-15); BUN 15 mg/dL (7-18); BUN/Creat Ratio 14.3 RATIO (10-20); Calcium,Total 9.1 mg/dL (8.5-10.1); Chloride 103 mmol/L (98-107); Cholesterol 164 mg/dL (200); Creatinine, Serum 1.05 mg/dL (0.55-1.02); EST Glomerular Filtration Rate 54 mL/min (>60); Est Glom Filt Rate - Afr Amer 65 mL/min (>60); Globulin 4.2 g/dL (2.2-4.2); Glucose 102 mg/dL (74-106); High Density Lipoprotein 51 mg/dL; Potassium 4.4 mmol/L (3.5-5.1); Sodium Level 137 mmol/L (136-145); Thyroid Stim Hormone (TSH) 1.52 uIU/mL (0.358-3.74); Triglycerides 146 mg/dL; Very Low Density Lipoprotein 29 mg/dL (5-40)
== END ==
PROVIDERS: PCP Family Medicine Geriatric Medicine; Visit Provider Family Medicine Geriatric Medicine
DX: I10 Essential (primary) hypertension (principal); E78.5 Hyperlipidemia, unspecified; E55.9 Vitamin D deficiency, unspecified
CPT/HCPCS: 36415; 80053; 80061; 82306; 84443; 85025

== ENCOUNTER 2020-07-23 13:12 | Outpatient (RCR) | payer MEDICARE, SELFPAY ==
[2020-03-26 15:26] VITALS: BMI 34.0
== END 2020-07-23 23:59 ==
LOC: IMMUN 13:12
PROVIDERS: PCP Family Medicine Geriatric Medicine; Referring Provider Family Medicine; Visit Provider Family Medicine
DX: Z23 Encounter for immunization (principal)
CPT/HCPCS: 0011A; 0012A

== ENCOUNTER → 2020-12-25 13:19 | Outpatient (CLI) | payer MEDICARE, SELFPAY ==
[2020-10-17 15:40] VITALS: BMI 33.8
[2020-12-25 15:16] LABS: Absolute Lymphocyte Count 1.76 X10^3/uL (0.83-4.51); Basophil# 0.02 X10^3/uL; Basophil% 0.3 % (0-1); Eosinophil# 0.12 X10^3/uL; Eosinophils% 1.6 % (0-5); Hematocrit 39.4 % (37-47); Hemoglobin 12.2 g/dL (12.0-15.0); Lymphocyte # 1.76 X10^3/ul (0.83-4.51); Mean Corpuscular Hgb 29.4 pg (27.0-32.0); Mean Corpuscular Volume 94.9 fL (81-99); Mean Platelet Vol. 10.5 fl (6.2-12.0); Monocyte# 0.67 X10^3/uL; Monocyte% 8.8 % (0-10); NRBC Flagged by Analyzer 0 % (0-5); Neutrophil # 5.04 X10^3/uL (2.7-7.7); Neutrophil % 65.9 % (47-70); Platelet Count 257 K/mm3 (150-450); RBC Distribution Width CV 12.6 % (11.6-14.6); RBC Distribution Width SD 43.8 fl (35.1-43.9); Red Blood Count 4.15 M/mm3 (4.2-5.4); White Blood Count 7.6 K/mm3 (4.4-11.0)
[2020-12-25 15:30] LABS: Vitamin D,25 Hydroxy 47.4 ng/mL
[2020-12-25 15:55] LABS: ALB/GLOB Ratio 0.8 RATIO (0.9-2.4); AST(SGOT) 21 U/L (15-37); Alanine Aminotransfer ALT/SGPT 18 U/L (13-56); Albumin, Serum 3.6 g/dL (3.2-5.0); Alkaline Phosphatase 126 U/L (45-117); Anion Gap 8 (5-15); BUN 16 mg/dL (7-18); BUN/Creat Ratio 16.5 RATIO (10-20); Calcium,Total 8.8 mg/dL (8.5-10.1); Chloride 108 mmol/L (98-107); Cholesterol 150 mg/dL (200); Creatinine, Serum 0.97 mg/dL (0.55-1.02); EST Glomerular Filtration Rate 59 mL/min (>60); Est Glom Filt Rate - Afr Amer 71 mL/min (>60); Globulin 4.3 g/dL (2.2-4.2); Glucose 85 mg/dL (74-106); High Density Lipoprotein 46 mg/dL; Potassium 4.1 mmol/L (3.5-5.1); Protein, Total 7.9 g/dL (6.4-8.2); Sodium Level 140 mmol/L (136-145); Thyroid Stim Hormone (TSH) 1.23 uIU/mL (0.358-3.74); Triglycerides 128 mg/dL; Very Low Density Lipoprotein 26 mg/dL (5-40)
== END ==
PROVIDERS: PCP Family Medicine Geriatric Medicine; Referring Provider Family Medicine Geriatric Medicine; Visit Provider Family Medicine Geriatric Medicine
DX: I10 Essential (primary) hypertension (principal); E78.5 Hyperlipidemia, unspecified; E55.9 Vitamin D deficiency, unspecified
CPT/HCPCS: 36415; 80053; 80061; 82306; 84443; 85025

== ENCOUNTER 2021-06-25 12:52 | Outpatient (CLI) | payer MEDICARE, SELFPAY ==
[2021-06-25 17:29] LABS: Absolute Lymphocyte Count 2.11 X10^3/uL (0.83-4.51); Basophil# 0.03 X10^3/uL; Basophil% 0.3 % (0-1); Eosinophil# 0.16 X10^3/uL; Eosinophils% 1.8 % (0-5); Hematocrit 38.6 % (37-47); Hemoglobin 11.9 g/dL (12.0-15.0); Lymphocyte # 2.11 X10^3/ul (0.83-4.51); Lymphocyte % 23.4 % (19-41); Mean Corp Hgb Conc 30.8 g/dL (32-36); Mean Corpuscular Hgb 29.4 pg (27.0-32.0); Mean Corpuscular Volume 95.3 fL (81-99); Mean Platelet Vol. 10.3 fl (6.2-12.0); Monocyte# 0.69 X10^3/uL; Monocyte% 7.7 % (0-10); NRBC Flagged by Analyzer 0 % (0-5); Neutrophil # 5.98 X10^3/uL (2.7-7.7); Neutrophil % 66.5 % (47-70); Platelet Count 327 K/mm3 (150-450); RBC Distribution Width CV 12.9 % (11.6-14.6); RBC Distribution Width SD 45.3 fl (35.1-43.9); Red Blood Count 4.05 M/mm3 (4.2-5.4)
[2021-06-25 18:05] LABS: Vitamin D,25 Hydroxy 71.8 ng/mL
[2021-06-25 18:09] LABS: ALB/GLOB Ratio 0.8 RATIO (0.9-2.4); AST(SGOT) 30 U/L (15-37); Alanine Aminotransfer ALT/SGPT 17 U/L (13-56); Albumin, Serum 3.5 g/dL (3.2-5.0); Alkaline Phosphatase 110 U/L (45-117); Anion Gap 5 (5-15); BUN 13 mg/dL (7-18); BUN/Creat Ratio 14.9 RATIO (10-20); Calcium,Total 9.3 mg/dL (8.5-10.1); Chloride 104 mmol/L (98-107); Cholesterol 132 mg/dL (200); Creatinine, Serum 0.87 mg/dL (0.55-1.02); EST Glomerular Filtration Rate 66 mL/min (>60); Est Glom Filt Rate - Afr Amer 80 mL/min (>60); Globulin 4.4 g/dL (2.2-4.2); Glucose 83 mg/dL (74-106); High Density Lipoprotein 45 mg/dL; Potassium 5.1 mmol/L (3.5-5.1); Protein, Total 7.9 g/dL (6.4-8.2); Sodium Level 136 mmol/L (136-145); Thyroid Stim Hormone (TSH) 1.42 uIU/mL (0.358-3.74); Triglycerides 117 mg/dL; Very Low Density Lipoprotein 23 mg/dL (5-40)
== END 2021-06-25 23:59 | disposition short-term general hospital (02) ==
LOC: POLAB3 12:53
PROVIDERS: PCP Family Medicine Geriatric Medicine; Visit Provider Family Medicine Geriatric Medicine
DX: E55.9 Vitamin D deficiency, unspecified (principal); E78.5 Hyperlipidemia, unspecified; I10 Essential (primary) hypertension
CPT/HCPCS: 36415; 80053; 80061; 82306; 84443; 85025

== ENCOUNTER → 2021-12-28 | Outpatient (CLI) | payer MEDICARE, SELFPAY ==
[2021-12-28 16:07] LABS: Absolute Lymphocyte Count 1.88 X10^3/uL (0.83-4.51); Absolute Neutrophil Count 6.4 X10^3/uL (2.0-7.7); Basophil# 0.03 X10^3/uL; Basophil% 0.3 % (0-1); Eosinophil# 0.12 X10^3/uL; Eosinophils% 1.3 % (0-5); Hematocrit 39.8 % (37-47); Hemoglobin 12.6 g/dL (12.0-15.0); Lymphocyte # 1.88 X10^3/ul (0.83-4.51); Lymphocyte % 20.9 % (19-41); Mean Corp Hgb Conc 31.7 g/dL (32-36); Mean Corpuscular Hgb 30.1 pg (27.0-32.0); Mean Corpuscular Volume 95.2 fL (81-99); Mean Platelet Vol. 10.7 fl (6.2-12.0); Monocyte# 0.53 X10^3/uL; Monocyte% 5.9 % (0-10); NRBC Flagged by Analyzer 0 % (0-5); Neutrophil # 6.41 X10^3/uL (2.7-7.7); Neutrophil % 71.2 % (47-70); Platelet Count 247 K/mm3 (150-450); Red Blood Count 4.18 M/mm3 (4.2-5.4)
[2021-12-28 16:24] LABS: Vitamin D,25 Hydroxy 53.4 ng/mL
[2021-12-28 16:30] LABS: ALB/GLOB Ratio 0.9 RATIO (0.9-2.4); AST(SGOT) 17 U/L (15-37); Alanine Aminotransfer ALT/SGPT 15 U/L (13-56); Albumin, Serum 3.6 g/dL (3.2-5.0); Alkaline Phosphatase 121 U/L (45-117); Anion Gap 3 (5-15); BUN 15 mg/dL (7-18); BUN/Creat Ratio 16.4 RATIO (10-20); Calcium,Total 9.6 mg/dL (8.5-10.1); Chloride 108 mmol/L (98-107); Cholesterol 156 mg/dL (200); Creatinine, Serum 0.92 mg/dL (0.55-1.02); EST Glomerular Filtration Rate 63 mL/min (>60); Est Glom Filt Rate - Afr Amer 76 mL/min (>60); Glucose 97 mg/dL (74-106); High Density Lipoprotein 45 mg/dL; Potassium 4.5 mmol/L (3.5-5.1); Protein, Total 7.6 g/dL (6.4-8.2); Sodium Level 140 mmol/L (136-145); Thyroid Stim Hormone (TSH) 1.72 uIU/mL (0.358-3.74); Triglycerides 114 mg/dL; Very Low Density Lipoprotein 23 mg/dL (5-40)
== END | disposition home or self-care (01) ==
LOC: POLAB3 13:00
PROVIDERS: PCP Family Medicine Geriatric Medicine; Visit Provider Family Medicine Geriatric Medicine
DX: I10 Essential (primary) hypertension (principal); E78.5 Hyperlipidemia, unspecified; E55.9 Vitamin D deficiency, unspecified
CPT/HCPCS: 36415; 80053; 80061; 82306; 84443; 85025

== ENCOUNTER → 2022-06-21 | Outpatient (CLI) | payer MEDICARE, SELFPAY ==
[2022-06-21 12:21] LABS: Absolute Lymphocyte Count 2.33 X10^3/uL (0.83-4.51); Absolute Neutrophil Count 6.8 X10^3/uL (2.0-7.7); Basophil# 0.04 X10^3/uL; Basophil% 0.4 % (0-1); Eosinophil# 0.18 X10^3/uL; Eosinophils% 1.8 % (0-5); Hemoglobin 12.4 g/dL (12.0-15.0); Lymphocyte # 2.33 X10^3/ul (0.83-4.51); Lymphocyte % 23.2 % (19-41); Mean Corp Hgb Conc 31.8 g/dL (32-36); Mean Corpuscular Hgb 29.7 pg (27.0-32.0); Mean Corpuscular Volume 93.5 fL (81-99); Mean Platelet Vol. 10.1 fl (6.2-12.0); Monocyte# 0.63 X10^3/uL; Monocyte% 6.3 % (0-10); NRBC Flagged by Analyzer 0 % (0-5); Neutrophil # 6.84 X10^3/uL (2.7-7.7); Neutrophil % 67.9 % (47-70); Platelet Count 323 K/mm3 (150-450); RBC Distribution Width CV 13.1 % (11.6-14.6); Red Blood Count 4.17 M/mm3 (4.2-5.4); White Blood Count 10.1 K/mm3 (4.4-11.0)
[2022-06-21 12:57] LABS: ALB/GLOB Ratio 0.9 RATIO (0.9-2.4); AST(SGOT) 20 U/L (15-37); Alanine Aminotransfer ALT/SGPT 18 U/L (13-56); Albumin, Serum 3.7 g/dL (3.2-5.0); Alkaline Phosphatase 118 U/L (45-117); Anion Gap 8 (5-15); BUN 14 mg/dL (7-18); BUN/Creat Ratio 13.2 RATIO (10-20); Calcium,Total 9.4 mg/dL (8.5-10.1); Chloride 106 mmol/L (98-107); Creatinine, Serum 1.06 mg/dL (0.55-1.02); EST Glomerular Filtration Rate 53 mL/min (>60); Est Glom Filt Rate - Afr Amer 64 mL/min (>60); Globulin 4.1 g/dL (2.2-4.2); Glucose 118 mg/dL (74-106); Potassium 4.6 mmol/L (3.5-5.1); Protein, Total 7.8 g/dL (6.4-8.2); Sodium Level 139 mmol/L (136-145); Thyroid Stim Hormone (TSH) 1.88 uIU/mL (0.358-3.74)
== END | disposition home or self-care (01) ==
LOC: POLAB3 11:13
PROVIDERS: PCP Family Medicine Geriatric Medicine; Visit Provider Family Medicine Geriatric Medicine
DX: I10 Essential (primary) hypertension (principal); E55.9 Vitamin D deficiency, unspecified
CPT/HCPCS: 36415; 80053; 82306; 84443; 85025

== ENCOUNTER → 2022-07-23 | Outpatient (CLI) | payer MEDICARE, SELFPAY ==
--- NOTE | 2022-07-23 12:40 | ECHOD_ITS ---
Reason For Study: , ASHD Procedure This was a 2D Doppler, Color Flow transthoracic echocardiogram. The exam was of adequate technical quality. Exam performed in department. Left Ventricle Normal LV size. Left ventricular systolic function is normal. The estimated ejection fraction is 65 %. Diastolic function is indeterminate. No regional wall motion abnormalities noted. Right Ventricle Normal RV size. Normal systolic function. Atria The left atrium is mildly enlarged. Normal right atrium. No doppler evidence for ASD. Mitral Valve There is no mitral annular calcification. Mild focal mitral valve calcification of the anterior leaflet. Mild (1+) mitral valve insufficiency. Tricuspid Valve Normal tricuspid valve. Mild tricuspid valve insufficiency. Right ventricular systolic pressure estimated to be 42 mmHg. Aortic Valve Trisinus/trileaflet aortic valve. Moderate focal aortic valve calcification. Mild aortic stenosis. Pulmonic Valve The pulmonic valve is not well visualized. Great Vessels Normal sized aortic root. Pericardium/Pleural No pericardial effusion. MMode/2D Measurements & Calculations LVIDd: 4.0 cm IVSd: 0.88 cm LVOT diam: 1.9 cm LVIDs: 2.5 cm LVPWd: 0.89 cm LVOT area: 2.9 cm2 RVDd: 2.8 cm FS: 37.4 % Ao root diam: 3.2 cm LAV(MOD-bp): 37.8 ml LVAd ap4: 19.9 cm2 LAV(MOD-bp) Indexed: 21.1 ml/m2 LVLd ap4: 6.9 cm LAV(MOD-sp2): 32.1 ml EDV(MOD-sp4): 46.6 ml LAV(MOD-sp4): 41.5 ml EDV(sp4-el): 48.7 ml LVAs ap4: 11.0 cm2 LVLs ap4: 5.6 cm ESV(MOD-sp4): 18.2 ml ESV(sp4-el): 18.4 ml EF(MOD-sp4): 60.8 % EF(sp4-el): 62.2 % SV(MOD-sp4): 28.3 ml SV(sp4-el): 30.3 ml Aortic Valve Planimetry: 1.7 cm2 LA A4 area: 16.7 cm2 LA dimension(2D): 3.9 cm RA A4 area: 10.7 cm2 Time Measurements MV dec time: 0.27 sec Doppler Measurements & Calculations MV E max jovany: 66.9 cm/sec Lat Peak E' Jovany: 9.8 cm/sec Med Peak E' Jovany: 5.2 cm/sec MV A max jovany: 101.2 cm/sec E/E' lat: 6.8 E/E' med: 12.8 MV E/A: 0.66 Ao V2 max: 192.7 cm/sec LV V1 max: 108.1 cm/sec MV dec slope: 247.6 cm/sec2 Ao max P.9 mmHg LV V1 max P.7 mmHg Ao V2 mean: 136.2 cm/sec LV V1 mean P.2 mmHg Ao mean P.2 mmHg LV V1 mean: 67.6 cm/sec Ao V2 VTI: 41.2 cm LV V1 VTI: 21.6 cm AV (velocity ratio): 0.52 KIRSTEN(I,D): 1.5 cm2 KIRSTEN(V,D): 1.6 cm2 SV(LVOT): 62.0 ml PA V2 max: 108.8 cm/sec TR max jovany: 311.3 cm/sec TR max P.8 mmHg ECHO/Echo Complete Interpretation Summary Left ventricular systolic function is normal. The estimated ejection fraction is 65 %. The left atrium is mildly enlarged. Mild focal mitral valve calcification of the anterior leaflet. Mild (1+) mitral valve insufficiency. Mild tricuspid valve insufficiency. Mild aortic stenosis. Right ventricular systolic pressure estimated to be 42 mmHg. Diastolic function is indeterminate. Ordering Physician: Anders Fitzpatrick Referring Physician: Yash Butcher Chi Performed By: Rosetta Mckeon, PATSYCS, RVT
== END | disposition home or self-care (01) ==
LOC: CVS 12:39
PROVIDERS: PCP Family Medicine Geriatric Medicine; Referring Provider Internal Medicine Cardiovascular Disease; Visit Provider Internal Medicine Cardiovascular Disease
DX: I25.10 Atherosclerotic heart disease of native coronary artery without angina pectoris (principal); Z95.5 Presence of coronary angioplasty implant and graft; I25.5 Ischemic cardiomyopathy; I35.0 Nonrheumatic aortic (valve) stenosis; E78.5 Hyperlipidemia, unspecified; I10 Essential (primary) hypertension
CPT/HCPCS: 93306

== ENCOUNTER → 2023-01-03 | Outpatient (CLI) | payer MEDICARE, SELFPAY ==
[2023-01-03 17:57] LABS: Absolute Lymphocyte Count 3.19 X10^3/uL (0.83-4.51); Absolute Neutrophil Count 5.8 X10^3/uL (2.0-7.7); Basophil# 0.03 X10^3/uL; Basophil% 0.3 % (0-1); Hematocrit 38.6 % (37-47); Hemoglobin 12.1 g/dL (12.0-15.0); Lymphocyte # 3.19 X10^3/ul (0.83-4.51); Lymphocyte % 32.1 % (19-41); Mean Corp Hgb Conc 31.3 g/dL (32-36); Mean Corpuscular Volume 95.8 fL (81-99); Mean Platelet Vol. 10.1 fl (6.2-12.0); Monocyte# 0.74 X10^3/uL; Monocyte% 7.4 % (0-10); NRBC Flagged by Analyzer 0 % (0-5); Neutrophil # 5.77 X10^3/uL (2.7-7.7); Platelet Count 299 K/mm3 (150-450); RBC Distribution Width CV 13.2 % (11.6-14.6); RBC Distribution Width SD 47.1 fl (35.1-43.9); Red Blood Count 4.03 M/mm3 (4.2-5.4)
[2023-01-03 18:20] LABS: Vitamin D,25 Hydroxy 44.6 ng/mL
[2023-01-03 18:41] LABS: ALB/GLOB Ratio 0.8 RATIO (0.9-2.4); AST(SGOT) 20 U/L (15-37); Alanine Aminotransfer ALT/SGPT 18 U/L (13-56); Albumin, Serum 3.5 g/dL (3.2-5.0); Alkaline Phosphatase 108 U/L (45-117); Anion Gap 2 (5-15); BUN 16 mg/dL (7-18); BUN/Creat Ratio 15.7 RATIO (10-20); Calcium,Total 9.1 mg/dL (8.5-10.1); Chloride 106 mmol/L (98-107); Cholesterol 148 mg/dL (200); Creatinine, Serum 1.02 mg/dL (0.55-1.02); EST Glomerular Filtration Rate 55 mL/min (>60); Est Glom Filt Rate - Afr Amer 67 mL/min (>60); Globulin 4.2 g/dL (2.2-4.2); Glucose 95 mg/dL (74-106); High Density Lipoprotein 54 mg/dL; Potassium 4.8 mmol/L (3.5-5.1); Protein, Total 7.7 g/dL (6.4-8.2); Sodium Level 137 mmol/L (136-145); Thyroid Stim Hormone (TSH) 1.59 uIU/mL (0.358-3.74); Triglycerides 149 mg/dL; Very Low Density Lipoprotein 30 mg/dL (5-40)
== END | disposition home or self-care (01) ==
PROVIDERS: PCP Family Medicine Geriatric Medicine; Visit Provider Family Medicine Geriatric Medicine
DX: I10 Essential (primary) hypertension (principal); E55.9 Vitamin D deficiency, unspecified
CPT/HCPCS: 36415; 80053; 80061; 82306; 84443; 85025

== ENCOUNTER → 2023-07-07 | Outpatient (CLI) | payer MEDICARE, SELFPAY ==
[2023-07-07 14:19] LABS: Absolute Lymphocyte Count 1.71 X10^3/uL (0.83-4.51); Absolute Neutrophil Count 5.2 X10^3/uL (2.0-7.7); Basophil# 0.02 X10^3/uL; Basophil% 0.3 % (0-1); Eosinophil# 0.09 X10^3/uL; Eosinophils% 1.2 % (0-5); Hematocrit 37.9 % (37-47); Hemoglobin 12.1 g/dL (12.0-15.0); Lymphocyte # 1.71 X10^3/ul (0.83-4.51); Lymphocyte % 22.8 % (19-41); Mean Corp Hgb Conc 31.9 g/dL (32-36); Monocyte% 5.3 % (0-10); NRBC Flagged by Analyzer 0 % (0-5); Neutrophil # 5.24 X10^3/uL (2.7-7.7); Platelet Count 193 K/mm3 (150-450); RBC Distribution Width CV 13.1 % (11.6-14.6); RBC Distribution Width SD 45.1 fl (35.1-43.9); Red Blood Count 4.03 M/mm3 (4.2-5.4); White Blood Count 7.5 K/mm3 (4.4-11.0)
[2023-07-07 14:28] LABS: Vitamin D,25 Hydroxy 50.4 ng/mL
[2023-07-07 14:54] LABS: ALB/GLOB Ratio 0.9 RATIO (0.9-2.4); AST(SGOT) 17 U/L (15-37); Alanine Aminotransfer ALT/SGPT 16 U/L (13-56); Albumin, Serum 3.7 g/dL (3.2-5.0); Alkaline Phosphatase 118 U/L (45-117); Anion Gap 8 (5-15); BUN 16 mg/dL (7-18); Calcium,Total 9.4 mg/dL (8.5-10.1); Chloride 106 mmol/L (98-107); Cholesterol 164 mg/dL (200); EST Glomerular Filtration Rate 56 mL/min (>60); Est Glom Filt Rate - Afr Amer 68 mL/min (>60); Glucose 96 mg/dL (74-106); High Density Lipoprotein 54 mg/dL; Potassium 4.4 mmol/L (3.5-5.1); Protein, Total 7.7 g/dL (6.4-8.2); Sodium Level 139 mmol/L (136-145); Thyroid Stim Hormone (TSH) 1.42 uIU/mL (0.358-3.74); Triglycerides 113 mg/dL; Very Low Density Lipoprotein 23 mg/dL (5-40)
== END | disposition home or self-care (01) ==
LOC: POLAB3 13:20
PROVIDERS: PCP Family Medicine Geriatric Medicine; Visit Provider Family Medicine Geriatric Medicine
DX: I10 Essential (primary) hypertension (principal); E55.9 Vitamin D deficiency, unspecified; E78.5 Hyperlipidemia, unspecified
CPT/HCPCS: 36415; 80053; 80061; 82306; 84443; 85025

== ENCOUNTER → 2023-08-17 | Outpatient (CLI) | payer MEDICARE, SELFPAY ==
--- NOTE | 2023-08-17 12:40 | STRESSREP_ITS ---
Stress Test Report Exercise myocardial perfusion stress test. 82-year-old female with a history of chest pain Stress protocol: Resting EKG demonstrates normal sinus rhythm with a rate of 78 bpm resting blood pressure is 158/74 mmHg. The patient exercised according to the regular Jp protocol for a total duration of 3 minutes attaining a maximum heart rate of 117 bpm which was 85% of maximum predicted heart rate; the maximum workload was 4.6 metabolic equivalents. At rest there were no ST or T wave changes noted to suggest ischemia and at peak exercise upsloping ST changes only were noted which did not meet the criteria for ischemia. No clinical angina was noted the test was terminated due to the target heart rate being achieved/fatigue. The peak blood pressure was 170/72 mmHg. Rate-pressure product was 19,000. Myocardial perfusion protocol. 11.0 mCi of technetium 99m sestamibi was injected at rest. The patient exercised according to regular Jp protocol for total duration of 3 minutes and at peak exercise 34.0 mCi of technetium 99m sestamibi was injected stress images were obtained stress and rest images were reconstructed in comparing the short axis vertical long and horizontal long axis. Gated images were also obtained. Perfusion SPECT analysis: Review of the stress images demonstrate normal uptake of tracer noted in all are as of the myocardium except for the basal inferior wall with reduced perfusion. The resting images similarly demonstrate normal uptake of tracer noted in all areas of the myocardium except for the basal inferior wall with reduced perfusion. No areas of reversibility are noted to suggest ischemia. Basal inferior infarct was likely. Gated SPECT analysis: The gated ejection fraction is 68%. Conclusion: Normal exercise myocardial perfusion stress test at a low workload Preserved ejection fraction. The low workload may affect sensitivity for detection of ischemia
== END | disposition home or self-care (01) ==
LOC: CVS 06:03
PROVIDERS: PCP Family Medicine Geriatric Medicine; Referring Provider Nurse Practitioner Family; Visit Provider Nurse Practitioner Family
DX: I25.10 Atherosclerotic heart disease of native coronary artery without angina pectoris (principal); I25.5 Ischemic cardiomyopathy; I10 Essential (primary) hypertension; E78.5 Hyperlipidemia, unspecified; I35.0 Nonrheumatic aortic (valve) stenosis; R06.02 Shortness of breath
CPT/HCPCS: 78452; 93017; A9500; A4216; J2785

== ENCOUNTER 2023-11-11 09:21 | Emergency (ER) | payer MEDICARE, SELFPAY ==
[2023-11-11 09:21] VITALS: BP 143/51
[2023-11-11 09:22] VITALS: PULSE 92; RESP 18; TEMP 36.6; O2SAT 95; BMI 31.0
--- NOTE | 2023-11-11 09:42 | CT_ITS ---
STUDY: CT BRAIN WITHOUT CONTRAST REASON FOR EXAM: Female, 82 years old. Injury RADIATION DOSAGE (If Supplied By Facility): CTDIvol = ( 44.99 ) mGy, DLP = ( 846.73 ) mGy TECHNIQUE: Transaxial CT imaging of the brain was performed without administration of intravenous contrast material. Individualized dose optimization techniques were used for this CT. COMPARISON: No relevant priors. FINDINGS: Normal soft tissue structures. There is hyperostosis frontalis internus. There is mild cerebral atrophy with widening of the extra-axial spaces and ventricular dilatation. Normal white matter tracts of the cerebral hemispheres. There are small punctate calcifications of the basal ganglia which are seen in the aging brain as a normal variant. Normal brainstem. Normal cerebellum. There is no intracranial hemorrhage. There are no findings of an acute ischemic infarction. Atherosclerotic plaque formation of the vertebral arteries and cavernous portions of the internal carotid arteries bilaterally. There is a depressed fracture of the floor of the left orbit with partial opacification of left maxillary sinus. A small amount of air is seen in the soft tissues overlying the the left infratemporal fossa. CT/Brain/Head without Contrast IMPRESSION: Chronic involutional changes of the brain. Depressed fracture of the floor of the left orbit with evidence of partial opacification of the left maxillary sinus and left ethmoid sinus. Small amount of air is seen within the left infratemporal fossa in comparison with the maxillary fracture. Electronically Signed: Poncho Isaacs MD at 10:16 EDT ,
--- NOTE | 2023-11-11 09:42 | CT_ITS ---
STUDY: CT FACIAL BONES WITHOUT CONTRAST REASON FOR EXAM: Female, 82 years old. Injury RADIATION DOSAGE (If Supplied By Facility): CTDIvol = ( 29.38 ) mGy, DLP = ( 567.79 ) mGycm TECHNIQUE: The patient was scanned in a multi detector CT scanner. Sagittal and coronal images were reconstructed. Individualized dose optimization techniques were used for this CT. COMPARISON: None. FINDINGS: Normal soft tissue structures. The breast fracture of the left orbital floor with partial opacification of the left maxillary sinus. Small amount of air is seen in the left infratemporal fossa. Normal nasal bones and anterior nasal spine. Mild degree of mucosal thickening of the left ethmoid sinus. CT/Sinus/Facial Bone IMPRESSION: Depressed left orbital floor fracture with partial opacification of the left maxillary sinus. Small amount of air is seen along the left infratemporal fossa. Electronically Signed: Poncho Isaacs MD at 10:17 EDT ,
--- NOTE | 2023-11-11 09:43 | EX.ED.GENINJ ---
HPI History of Present Illness Chief Complaint: Fall Informant: patient and EMS Narrative Narrative: 82-year-old female tripped and fell today striking her face on the ground and injuring the left shoulder region. Patient denies any loss of consciousness. She states she had a bloody nose which has resolved. She notes pain in the proximal to mid left humerus. The patient states that she was unable to get up off the ground and her neighbor called EMS. She denies taking any blood thinners but does take an antiplatelet in the form of a baby aspirin. Her glasses were uninjured. No change in vision. She notes tenderness and soreness over the left maxillary region. She denies neck or back pain. No leg symptoms. [facility] Medical History Aortic valve stenosis, nonrheumatic Colon polyp Hemorrhoids Constipation Diarrhea Nausea Abdominal pain Essential hypertension Inferior myocardial infarction Left ventricular diastolic dysfunction Left ventricular hypertrophy Hyperlipidemia Hypertension Ischemic cardiomyopathy Presence of stent in coronary artery (~03/31/15) Atherosclerotic heart disease of [place] coronary artery without angina pectoris Home Medications ?Medication ?Instructions ?Recorded ?Last Taken ?Type cholecalciferol (vitamin D3) 25 25 mcg PO DAILY 06/12/21 Unknown History mcg (1,000 unit) tablet atorvastatin 80 mg tablet 80 mg PO QHS cholesterol #90 tabs 02/13/23 Unknown Rx lisinopril 5 mg tablet 5 mg PO QDAY htn #90 tabs 02/13/23 Unknown Rx aspirin 81 mg tablet,delayed 81 mg PO 2XW 07/22/23 Unknown History release (Adult Aspirin Regimen) amoxicillin 875 mg-potassium 875 mg PO Q12H #14 TABLETS 11/11/23 Unknown Rx clavulanate 125 mg tablet hydrocodone-acetaminophen 5-325mg 1 tab PO Q6H PRN PRN Pain 3 days 11/11/23 Unknown Rx 5mg-325mg #12 TABLETS Allergy/AdvReac Type Severity Reaction Status Date / Time No Known Allergies Allergy Verified 07/22/23 13:04 Family History Sister Uterine cancer Surgical History Presence of coronary angioplasty implant and graft (~03/31/15) History of hemicolectomy Hx of colonoscopy Social History Smoking Status: Never smoker second hand exposure: No alcohol intake: never substance use type: does not use caffeine: Yes what type of physical activity do you participate in: walking and additional details: tredmill frequency: daily seatbelt use: always ROS ROS ED Constitutional Constitutional ED: Denies chills or weight loss Eyes Eyes: Denies blurry vision, change in vision or diplopia ENT ENT ED: Reports other Details: See HPI ; Denies ear pain, rhinorrhea or sore throat Cardiovascular Cardiovascular: Denies chest pain, orthopnea, palpitations or racing heartbeat Respiratory/Chest Respiratory/Chest: Denies cough, dyspnea or orthopnea Gastrointestinal Gastrointestinal: Denies abdominal pain, diarrhea, nausea or vomiting Genitourinary Genitourinary ED: Denies dysuria, hematuria or urinary frequency Musculoskeletal Musculoskeletal: Reports other Details: Left mid to proximal humerus pain ; Denies arthralgias, back pain, myalgias or neck pain Integumentary Denies abscess or rash Neurologic Neurologic: Denies headache(s) or weakness Psychiatric Psychiatric: Denies anxiety, depression, suicidal ideation or suicidal thoughts Endocrine Endocrinology: Denies polydipsia, polyphagia or polyuria Allergic/Immunologic Allergic/Immunologic ED: Denies mouth swelling, tongue swelling or urticaria EXAM Physical Exam Const Vital Signs: 11/11/23 09:21 11/11/23 09:21 11/11/23 09:22 Temperature 97.8 F Temperature Source Temporal Pulse Rate 92 Respiratory Rate 18 Respiratory Effort Normal Respiratory Depth Normal Respiratory Pattern Normal Blood Pressure 143/51 H Blood Pressure Mean 81 Pulse Ox 95 Oxygen Delivery Method Room Air Room Air Positive well nourished and well developed General Appearance ED: well developed and NAD HEENT Reports normocephalic, head/scalp atraumatic and moist mucous membranes HEENT Narrative: No septal hematoma noted. There is some left maxillary facial swelling and erythema. No palpable bony depressions. Hard and soft palate appear normal. Extraocular motions are intact. Eyes PERRL and EOMs intact bilaterally Neck full ROM, no lymphadenopathy, supple and no JVD General: Negative for tenderness Resp normal respiratory effort and clear to auscultation bilaterally Cardio regular rate, regular rhythm and no murmurs GI normal to inspection, nondistended, normoactive bowel sounds and non-tender Palpation: soft Back/Spine no CVA tenderness and normal ROM Extremity Extremity Narrative: Patient with mild tenderness to palpation along the left mid to proximal humerus. No significant hematoma or ecchymosis seen. No palpable dislocation or deformity. Limited range of motion secondary to pain General Extremety ED: Negative for edema General Extremity: Negative for edema Neuro oriented x3 and CN's II-XII intact bilaterally Sensorium / Orientation: alert Motor Exam: strength 5/5 throughout Psych mental status grossly normal Mood & Affect: Negative for depressed or tearful Skin no rashes or lesions noted and no wounds MDM MDM MDM Narrative Medical decision making narrative: Differential diagnosis includes but not limited to facial fracture septal hematoma intracranial hemorrhage/hematoma skull fracture shoulder/humerus fracture sprain strain of the humerus contusion CT of the brain and facial bones were obtained. These demonstrated a inferior orbital wall fracture with blood in the maxillary sinus on the left. There is air outside of the normal cavity. Please see the radiologist read for further details. My independent interpretation of the plain films of the left humerus is no acute fracture. Patient was advised of the above findings as well as home treatment. We talked about sneezing and blowing her nose and the potential complications including eye muscle entrapment. Will be placing her on Augmentin as well as some pain medication. Would recommend actual facial follow-up. Provided her with a clinic in [place]. [place] was discussed. She notes understanding of return instructions as well as need for follow-up History & Record Review Discussion w/independent historian: Patient and Family Radiography Diagnostic Testing: Clinical Impression(s) from Imaging Studies Brain CT 11/11/23 09:42 IMPRESSION: Chronic involutional changes of the brain. Depressed fracture of the floor of the left orbit with evidence of partial opacification of the left maxillary sinus and left ethmoid sinus. Small amount of air is seen within the left infratemporal fossa in comparison with the maxillary fracture. Electronically Signed: Poncho Isaacs MD at 10:16 EDT , Facial/Sinus 11/11/23 09:42 IMPRESSION: Depressed left orbital floor fracture with partial opacification of the left maxillary sinus. Small amount of air is seen along the left infratemporal fossa. Electronically Signed: Poncho Isaacs MD at 10:17 EDT , Humerus X-Ray 11/11/23 10:01 IMPRESSION: Normal x-ray examination of the humerus. Electronically Signed: Poncho Isaacs MD at 10:26 EDT , Discharge Plan Triage Chief Complaint: Fall ED Provider: Cheikh Olson Dx/Rx/DC Orders Clinical Impression: Fall, Epistaxis, Contusion of face, Contusion of left shoulder, Orbital floor fracture Instructions: Facial Fracture Prescriptions: New hydrocodone-acetaminophen 5-325 mg tablet 1 tab PO Q6H PRN PRN (Reason: Pain) 3 Days Qty: 12 0RF amoxicillin-pot clavulanate 875-125 mg tablet 875 mg PO Q12H Qty: 14 0RF No Action cholecalciferol (vitamin D3) 25 mcg (1,000 unit) tablet 25 mcg PO DAILY aspirin [Adult Aspirin Regimen] 81 mg tablet,delayed release (DR/EC) 81 mg PO 2XW atorvastatin 80 mg tablet 80 mg PO QHS Qty: 90 3RF lisinopril 5 mg tablet 5 mg PO QDAY Qty: 90 3RF Primary Care Provider: Yash Butcher Chi Referrals: Yash Butcher Chi, MD [Primary Care Provider] - Activity Restrictions/Additional Instructions: Please call [place] [employer] [facility] at [phone]. Please tell them you have a orbital floor fracture on the left. You are given a copy of your imaging. Print Language: Arabic Disposition Disposition: Home, Self Care
--- NOTE | 2023-11-11 10:01 | RAD_ITS ---
STUDY: X-RAY - LEFT HUMERUS REASON FOR EXAM: Female, 82 years old. Injury TECHNIQUE: 2 view(s) of the humerus. COMPARISON: None. FINDINGS: Normal visualized humerus. There is no demonstrated fracture or osseous destructive process. There is no demonstrated soft tissue abnormality. RAD/Humerus min 2 Views IMPRESSION: Normal x-ray examination of the humerus. Electronically Signed: Poncho Isaacs MD at 10:26 EDT ,
[2023-11-11 11:21] VITALS: BP 174/73; PULSE 89; RESP 17; TEMP 36.6; O2SAT 94
== END 2023-11-11 11:38 | disposition home or self-care (01) ==
PROVIDERS: Emergency Provider Emergency Medicine; PCP Family Medicine Geriatric Medicine; Visit Provider Emergency Medicine
DX: S02.32XA Fracture of orbital floor, left side, initial encounter for closed fracture (principal); W18.09XA Striking against other object with subsequent fall, initial encounter; S40.012A Contusion of left shoulder, initial encounter; R04.0 Epistaxis; I25.10 Atherosclerotic heart disease of native coronary artery without angina pectoris; I25.5 Ischemic cardiomyopathy; I10 Essential (primary) hypertension; E78.5 Hyperlipidemia, unspecified; I25.2 Old myocardial infarction; Z79.82 Long term (current) use of aspirin; Z79.899 Other long term (current) drug therapy; Z95.5 Presence of coronary angioplasty implant and graft
CPT/HCPCS: 70450; 70486; 73060; 99282

== ENCOUNTER → 2024-01-09 | Outpatient (CLI) | payer MEDICARE, SELFPAY ==
[2024-01-09 12:00] LABS: Absolute Lymphocyte Count 2.67 X10^3/uL (0.83-4.51); Absolute Neutrophil Count 9.2 X10^3/uL (2.0-7.7); Basophil# 0.04 X10^3/uL; Basophil% 0.3 % (0-1); Eosinophils% 0.8 % (0-5); Hematocrit 39.2 % (37-47); Hemoglobin 12.2 g/dL (12.0-15.0); Lymphocyte # 2.67 X10^3/ul (0.83-4.51); Lymphocyte % 20.6 % (19-41); Mean Corp Hgb Conc 31.1 g/dL (32-36); Mean Corpuscular Hgb 29.3 pg (27.0-32.0); Mean Platelet Vol. 10.1 fl (6.2-12.0); Monocyte# 0.91 X10^3/uL; NRBC Flagged by Analyzer 0 % (0-5); Neutrophil # 9.21 X10^3/uL (2.7-7.7); Platelet Count 306 K/mm3 (150-450); RBC Distribution Width CV 13.5 % (11.6-14.6); Red Blood Count 4.17 M/mm3 (4.2-5.4)
[2024-01-09 12:47] LABS: Vitamin D,25 Hydroxy 59.3 ng/mL
[2024-01-09 12:57] LABS: ALB/GLOB Ratio 0.9 RATIO (0.9-2.4); AST(SGOT) 23 U/L (15-37); Alanine Aminotransfer ALT/SGPT 15 U/L (13-56); Albumin, Serum 3.7 g/dL (3.2-5.0); Alkaline Phosphatase 119 U/L (45-117); Anion Gap 4 (5-15); BUN 12 mg/dL (7-18); BUN/Creat Ratio 12.8 RATIO (10-20); Calcium,Total 9.4 mg/dL (8.5-10.1); Chloride 104 mmol/L (98-107); Cholesterol 158 mg/dL (200); Creatinine, Serum 0.94 mg/dL (0.55-1.02); EST Glomerular Filtration Rate 61 mL/min (>60); Est Glom Filt Rate - Afr Amer 73 mL/min (>60); Globulin 4.1 g/dL (2.2-4.2); Glucose 109 mg/dL (74-106); High Density Lipoprotein 53 mg/dL; Potassium 4.3 mmol/L (3.5-5.1); Protein, Total 7.8 g/dL (6.4-8.2); Sodium Level 138 mmol/L (136-145); Thyroid Stim Hormone (TSH) 1.74 uIU/mL (0.358-3.74); Triglycerides 128 mg/dL; Very Low Density Lipoprotein 26 mg/dL (5-40)
== END | disposition home or self-care (01) ==
LOC: POLAB3 11:35
PROVIDERS: PCP Family Medicine Geriatric Medicine; Visit Provider Family Medicine Geriatric Medicine
DX: E78.5 Hyperlipidemia, unspecified (principal); E55.9 Vitamin D deficiency, unspecified; I10 Essential (primary) hypertension
CPT/HCPCS: 36415; 80053; 80061; 82306; 84443; 85025

== ENCOUNTER → 2024-03-05 | Outpatient (CLI) | payer MEDICARE, SELFPAY | END | disposition home or self-care (01) | LOC: CVS 09:10 | PROVIDERS: PCP Family Medicine Geriatric Medicine; Referring Provider Internal Medicine Cardiovascular Disease; Visit Provider Internal Medicine Cardiovascular Disease | DX: I10 Essential (primary) hypertension (principal) | CPT/HCPCS: 93788 ==

== ENCOUNTER → 2024-07-06 | Outpatient (CLI) | payer MEDICARE, SELFPAY ==
[2024-07-06 12:21] LABS: Absolute Lymphocyte Count 2.86 X10^3/uL (0.83-4.51); Absolute Neutrophil Count 7.9 X10^3/uL (2.0-7.7); Basophil# 0.05 X10^3/uL; Basophil% 0.4 % (0-1); Eosinophil# 0.11 X10^3/uL; Eosinophils% 0.9 % (0-5); Hematocrit 39.5 % (37-47); Hemoglobin 12.3 g/dL (12.0-15.0); Lymphocyte # 2.86 X10^3/ul (0.83-4.51); Lymphocyte % 24.5 % (19-41); Mean Corp Hgb Conc 31.1 g/dL (32-36); Mean Corpuscular Hgb 29.8 pg (27.0-32.0); Mean Corpuscular Volume 95.6 fL (81-99); Mean Platelet Vol. 10.4 fl (6.2-12.0); Monocyte# 0.71 X10^3/uL; Monocyte% 6.1 % (0-10); NRBC Flagged by Analyzer 0 % (0-5); Neutrophil # 7.91 X10^3/uL (2.7-7.7); Neutrophil % 67.8 % (47-70); Platelet Count 306 K/mm3 (150-450); RBC Distribution Width CV 13.1 % (11.6-14.6); RBC Distribution Width SD 45.7 fl (35.1-43.9); Red Blood Count 4.13 M/mm3 (4.2-5.4); White Blood Count 11.7 K/mm3 (4.4-11.0)
[2024-07-06 12:28] LABS: Vitamin D,25 Hydroxy 49.9 ng/mL
[2024-07-06 12:34] LABS: ALB/GLOB Ratio 0.9 RATIO (0.9-2.4); AST(SGOT) 20 U/L (15-37); Alanine Aminotransfer ALT/SGPT 20 U/L (13-56); Albumin, Serum 3.7 g/dL (3.2-5.0); Alkaline Phosphatase 131 U/L (45-117); Anion Gap 6 (5-15); BUN 17 mg/dL (7-18); Calcium,Total 9.7 mg/dL (8.5-10.1); Chloride 104 mmol/L (98-107); Cholesterol 150 mg/dL (200); Creatinine, Serum 1.13 mg/dL (0.55-1.02); EST Glomerular Filtration Rate 49 mL/min (>60); Est Glom Filt Rate - Afr Amer 59 mL/min (>60); Globulin 4.1 g/dL (2.2-4.2); Glucose 94 mg/dL (74-106); High Density Lipoprotein 52 mg/dL; Protein, Total 7.8 g/dL (6.4-8.2); Sodium Level 138 mmol/L (136-145); Triglycerides 138 mg/dL; Very Low Density Lipoprotein 28 mg/dL (5-40)
== END | disposition home or self-care (01) ==
LOC: POLAB3 11:25
PROVIDERS: PCP Family Medicine Geriatric Medicine; Visit Provider Family Medicine Geriatric Medicine
DX: E78.5 Hyperlipidemia, unspecified (principal); I10 Essential (primary) hypertension; E55.9 Vitamin D deficiency, unspecified
CPT/HCPCS: 36415; 80053; 80061; 82306; 84443; 85025

== ENCOUNTER → 2025-01-09 | Outpatient (CLI) | payer MEDICARE, SELFPAY ==
[2025-01-09 12:16] LABS: Hematocrit 37.4 % (37-47); Hemoglobin 11.8 g/dL (12.0-15.0); Immature Granulocytes Count 0.020 X10^3/uL (0.0-0.0); Mean Corp Hgb Conc 31.6 g/dL (32-36); Mean Corpuscular Volume 95.7 fL (81-99); Mean Platelet Vol. 9.6 fl (6.2-12.0); NRBC Flagged by Analyzer 0 % (0-5); Platelet Count 315 K/mm3 (150-450); RBC Distribution Width CV 13.2 % (11.6-14.6); RBC Distribution Width SD 45.6 fl (35.1-43.9); Red Blood Count 3.91 M/mm3 (4.2-5.4); White Blood Count 10.6 K/mm3 (4.4-11.0)
[2025-01-09 13:14] LABS: AST(SGOT) 24 U/L (<=31); Alanine Aminotransfer ALT/SGPT 5 U/L (<=34); Albumin, Serum 4.1 g/dL (3.4-4.8); Alkaline Phosphatase 124 U/L (35-104); Anion Gap 10 (5-15); BUN 18 mg/dL (4-19); BUN/Creat Ratio 16.3 RATIO (10-20); Calcium,Total 9.6 mg/dL (7.6-11.0); Carbon Dioxide 26.4 mmol/L (21.0-32.0); Chloride 103 mmol/L (98-108); Globulin 3.5 g/dL (2.2-4.2); Glucose 103 mg/dL (70-99); Potassium 4.8 mmol/L (3.3-5.1); Vitamin D,25 Hydroxy 46.8 ng/mL (30-100)
[2025-01-09 13:48] LABS: Cholesterol 158 mg/dL (<=200); Low Density Lipoprotein Calc. 85 mg/dL; Triglycerides 112 mg/dL; Very Low Density Lipoprotein 22 mg/dL (5-40); cholesterol:hdl ratio screen 3.10
== END | disposition home or self-care (01) ==
LOC: LAB 11:23
PROVIDERS: PCP Family Medicine Geriatric Medicine; Referring Provider Family Medicine Geriatric Medicine; Visit Provider Family Medicine Geriatric Medicine
DX: I10 Essential (primary) hypertension (principal); E55.9 Vitamin D deficiency, unspecified; E78.5 Hyperlipidemia, unspecified
CPT/HCPCS: 36415; 80053; 80061; 82306; 84443; 85025